=== PATIENT | male | born 1935 | race Caucasian/White ===

== ENCOUNTER 2016-05-02 00:15 | Inpatient (IN) | payer OTHER ==
[2016-05-02] MEDS ORDERED: ALBUTEROL SO4 2.5/IPRATROPIUM 0.5 INH SOL 3 ML VIAL.NEB. NEB ONE (00:22)
[2016-05-02] MEDS ORDERED: methylPREDNISolone NA SUCC 125 MG/2 ML VIAL ONE (00:22)
--- NOTE | 2016-05-02 00:22 | PDOC ---
ED Treatment Course - LABORATORY CBC & Chemistry Diagram: 05/02/16 00:38 05/02/16 00:38 Medical Decision Making - Medical Decision Making 05/02/16 00:21 agree with care from [facility] *DC/Admit/Observation/Transfer Diagnosis at time of Disposition: Obstructive chronic bronchitis with exacerbation - Discharge Dispostion Condition at time of disposition: Stable
[2016-05-02 00:48] LABS: MCH 30.2 pg (25.7-33.7); MCHC 33.4 g/dl (32.0-35.9); MEAN CELL VOLUME 90.4 fl (80-96); MEAN PLT VOLUME 9.9 fl (7.5-11.1); PLATELET COUNT 133 K/MM3 (134-434); RDW 14.1 % (11.9-15.9); WHITE BLOOD COUNT 7.9 K/mm3 (4.0-10.0)
[2016-05-02 01:09] LABS: ALBUMIN 3.8 g/dl (3.4-5.0); BILIRUBIN,TOTAL 0.5 mg/dL (0.2-1.0); CALCIUM 8.6 mg/dL (8.5-10.1); CREATININE 1.4 mg/dL (0.7-1.3); TOT PROT 6.7 g/dl (6.4-8.2)
[2016-05-02 01:11] LABS: TROPONIN I 0.06 ng/ml (0.00-0.05)
--- NOTE | 2016-05-02 02:18 | PDOC ---
History of Present Illness - General Chief Complaint: Shortness of Breath Stated Complaint: DIFFICULTY BREATHING Time Seen by Provider: 05/02/16 00:19 History Source: Patient, Family Exam Limitations: No Limitations - History of Present Illness Initial Comments: 05/02/16 02:10 81yo Male patient w/ PmHx: HLD, HTN, "Prostate problems," presents to ED via EMS from home w/ family. Patient with cough and trouble breathing x 3 days not getting better. Patient son states he was refusing to go to doctors. Patient is a former smoker who quit 1 year ago. Enroute to ED patient received DuoNeb x1 and Solumedrol 125 IV w/ fluids. He denies CP, Abd pain, Back pain, n/v/d, fever , dysuria, hematuria, or any other complaints at this time. Timing/Duration: reports: changing over time, getting worse Severity: reports: moderate Possible Cause: Yes: illness exposure Modifying Factors: worse with: activity, albuterol inhaler, albuterol nebulizer , antibiotics, coughing, lying down, oxygen, rest, other Associated Symptoms: reports: cough, shortness of breath, wheezing Past History - Travel Traveled outside of the country in the last 30 days: No Close contact w/someone who was outside of country & ill: No - Past Medical History Allergies/Adverse Reactions: Allergies Allergy/AdvReac Type Severity Reaction Status Date / Time No Known Allergies Allergy Verified 05/02/16 00:25 Home Medications: Ambulatory Orders Aspirin [Aspirin EC] 81 mg PO DAILY 05/15/14 Atenolol [Tenormin -] 25 mg PO BID 05/15/14 Enalapril Maleate [Vasotec -] 20 mg PO DAILY 05/15/14 Fenofibrate 50 mg PO DAILY 05/15/14 Fluticasone Propionate [Flovent Diskus] 50 mcg IH ASDIR 05/15/14 Guaifenesin/Codeine Phos [Guaifenesin-Codeine Syrup] 5 ml PO Q6H PRN #100 ml 04/30 Prednisone [Deltasone -] 60 mg PO UTDICT #12 tablet 05/15/14 Simvastatin [Zocor -] 40 mg PO HS 05/15/14 COPD: Yes HTN: Yes Hypercholesterolemia: Yes - Immunization History Immunization Up to Date: No - Psycho/Social/Smoking Cessation Hx Anxiety: No Suicidal Ideation: No Smoking History: Former smoker Have you smoked in the past 12 months: No Number of Cigarettes Smoked Daily: 4 Information on smoking cessation initiated: No Hx Alcohol Use: Yes Drug/Substance Use Hx: No Substance Use Type: Alcohol Respiratory Specific PMHX - Complaint Specific PMHX Angina: No Bronchitis: No Pneumonia: No Pulmonary Embolus: No TB (Tuberculosis): No Review of Systems - Review of Systems Able to Perform ROS?: Yes Is the patient limited Estonian proficient: Yes Constitutional: No: Chills, Fever HEENTM: No: Nose Congestion Respiratory: Yes: Cough, Shortness of Breath, Wheezing. No: Productive cough, Hemoptysis Cardiac (ROS): No: Chest Pain, Lightheadedness, Palpitations, Chest Tightness ABD/GI: No: Constipated, Diarrhea, Nausea, Poor Appetite, Poor Fluid Intake, Vomiting : No: Burning, Dysuria, Frequency, Flank Pain, Hematuria, Pain, Urgency Musculoskeletal: No: Back Pain Integumentary: No: Bruising, Erythema, Rash Neurological: No: Headache, Seizure, Tremors, Weakness All Other Systems: Reviewed and Negative *Physical Exam - Vital Signs Last Vital Signs Temp Pulse Resp BP Pulse Ox 98.8 F 109 H 24 172/81 91 L 05/02/16 00:05/02/16 00:17 05/02/16 00:17 05/02/16 00:17 05/02/16 00:17 - Physical Exam General Appearance: Yes: Nourished, Appropriately Dressed, Apparent Distress, Moderate Distress. No: Severe Distress HEENT: positive: EOMI, CHIO, Normal ENT Inspection, Normal Voice, Symmetrical, TMs Normal, Pharynx Normal. negative: Pharyngeal Erythema, Tonsillar Exudate, Tonsillar Erythema, Nasal Congestion, TM Bulging, TM Dull, TM Erythema Neck: positive: Trachea midline, Supple. negative: Stridor, Lymphadenopathy (R) , Lymphadenopathy (L) Respiratory/Chest: positive: Respiratory Distress, Labored Respiration, Rhonchi , Wheezing. negative: Chest Tender, Lungs Clear, Normal Breath Sounds, Accessory Muscle Use Cardiovascular: positive: Regular Rhythm, Regular Rate. negative: Edema, JVD, Murmur Gastrointestinal/Abdominal: positive: Normal Bowel Sounds, Soft, Distended. negative: Guarding, Rebound, Tenderness Lymphatic: negative: Adenopathy Musculoskeletal: positive: Normal Inspection. negative: CVA Tenderness Extremity: positive: Normal Capillary Refill, Normal Inspection, Normal Range of Motion Integumentary: positive: Normal Color, Dry, Warm. 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, Fully Oriented, Alert, Normal Mood/ Affect, Normal Response, Motor Strength 07/18 ED Treatment Course - LABORATORY CBC & Chemistry Diagram: 05/02/16 00:38 05/02/16 00:38 - ADDITIONAL ORDERS Additional order review: Laboratory Results 05/02/16 05/02/16 05/02/16 00:38 00:38 00:38 Sodium 141 Potassium 4.3 Chloride 104 Carbon Dioxide 26 Anion Gap 11 BUN 22 H Creatinine 1.4 H D Creat Clearance w eGFR 48.64 Random Glucose 139 H D Calcium 8.6 Total Bilirubin 0.5 AST 44 H ALT 41 Alkaline Phosphatase 43 L Creatine Kinase 460 H Creatine Kinase Index 0.9 CK-MB (CK-2) 4.215 H CK-MB (CK-2) Rel Index Cancelled Troponin I 0.06 H B-Natriuretic Peptide 199.22 Total Protein 6.7 Albumin 3.8 05/02/16 00:38 RBC 4.65 MCV 90.4 MCHC 33.4 RDW 14.1 MPV 9.9 - RADIOLOGY Radiology Studies Ordered: Category Date Time Status CHEST CT WITH CONTRAST [CT] Stat CT Scan 05/02/16 01:40 Ordered CHEST PA & LAT [RAD] Stat Radiology 05/02/16 00:25 Taken *DC/Admit/Observation/Transfer Diagnosis at time of Disposition: COPD exacerbation Pneumonia Qualifiers: Pneumonia type: due to unspecified organism Laterality: right Lung location: lower lobe of lung Qualified Code(s): J18.9 - Pneumonia, unspecified organism - Discharge Dispostion Disposition: HOME Condition at time of disposition: Stable Admit: Yes - Referrals Referrals: Raj Looney MD [Primary Care Provider] -
[2016-05-02 02:22] LABS: URINE APPEARANCE CLEAR; URINE BILIRUBIN NEGATIVE (NEGATIVE); URINE BLOOD NEGATIVE (NEGATIVE); URINE COLOR YELLOW; URINE GLUCOSE (UA) NEGATIVE (NEGATIVE); URINE KETONE NEGATIVE (NEGATIVE); URINE LEUK ESTERASE NEGATIVE (NEGATIVE); URINE NITRITE NEGATIVE (NEGATIVE); URINE UROBILINOGEN NEGATIVE E.U./dl (0.2-1.0)
[2016-05-02 02:23] LABS: URINE PROTEIN 1+ (NEGATIVE)
[2016-05-02 02:29] LABS: GRANULAR CASTS 2 /lpf; URINE BACTERIA RARE /hpf (NONE SEEN); URINE HYALINE CAST 1 /lpf; URINE MUCUS RARE; URINE RBC 1 /hpf (0-3); URINE WBC 1 /hpf (3-5)
[2016-05-02] MEDS ORDERED: LEVOFLOXACIN 750 MG IVPB 150 ML IVPB ONE ×2 (03:21→04:13)
[2016-05-02] MEDS: methylPREDNISolone NA SUCC 40 MG/1 ML VIAL IVPB SCH ×4 (06:48→21:56)
[2016-05-02] MEDS ORDERED: methylPREDNISolone NA SUCC 40 MG/1 ML VIAL ONE (06:49)
[2016-05-02] MEDS: ALBUTEROL SO4 2.5/IPRATROPIUM 0.5 INH SOL 3 ML VIAL.NEB. NEB PRN ×2 (07:53→09:33)
[2016-05-02 08:51] VITALS: BMI 26.3
--- NOTE | 2016-05-02 09:46 | HP ---
Admitting History and Physical - Admission History of Present Illness: 81yo Male patient w/ PmHx: HLD, HTN, "Prostate problems," presents to ED via EMS from home w/ family. Patient with cough and trouble breathing x 3 days not getting better. Patient son states he was refusing to go to doctors. Patient is a former smoker who quit 1 year ago. PT SEEN ON ARRIVAL TO FLOOR HE WAS WHEEZING AND IN DITRESSS--HE WAS GIVEN NEBS AND SOLU-MEDROL WITH SOME IMPROVEMENT WILL TRANSFER TO MONITORED BED PT SEEN AND DISCUSSED WITH DR MEHTA - Past Medical History Cardiovascular: Yes: HTN, Hyperlipdemia Pulmonary: Yes: COPD Renal/: Yes: BPH - Smoking History Smoking history: Former smoker Have you smoked in the past 12 months: No Aproximately how many cigarettes per day: 4 - Alcohol/Substance Use Hx Alcohol Use: Yes Home Medications - Allergies Allergies/Adverse Reactions: Allergies Allergy/AdvReac Type Severity Reaction Status Date / Time No Known Allergies Allergy Verified 05/02/16 00:25 - Home Medications Home Medications: Ambulatory Orders Aspirin [Aspirin EC] 81 mg PO DAILY 05/15/14 Atenolol [Tenormin -] 25 mg PO BID 05/15/14 Enalapril Maleate [Vasotec -] 20 mg PO DAILY 05/15/14 Fenofibrate 50 mg PO DAILY 05/15/14 Fluticasone Propionate [Flovent Diskus] 50 mcg IH ASDIR 05/15/14 Guaifenesin/Codeine Phos [Guaifenesin-Codeine Syrup] 5 ml PO Q6H PRN #100 ml 04/30 Prednisone [Deltasone -] 60 mg PO UTDICT #12 tablet 05/15/14 Simvastatin [Zocor -] 40 mg PO HS 05/15/14 Review of Systems - Review of Systems Cardiovascular: denies: Chest Pain, Palpitations Respiratory: reports: Cough, SOB, SOB on Exertion, Wheezing Gastrointestinal: denies: Abdominal Pain Genitourinary: reports: Frequency Neurological: reports: No Symptoms Physical Examination Vital Signs: Vital Signs Temperature 97 F L 05/02/16 08:43 Pulse Rate 120 H 05/02/16 09:34 Respiratory Rate 20 05/02/16 08:57 Blood Pressure 136/84 05/02/16 08:43 O2 Sat by Pulse Oximetry (%) 98 02/17/17 09:34 Cardiovascular: Yes: Tachycardia, S1, S2 Respiratory: Yes: Diminished, Rhonchi, Wheezes Gastrointestinal: Yes: Normal Bowel Sounds, Soft. No: Tenderness Edema: No Problem List - Problems (1) COPD exacerbation Assessment/Plan: IV STEROIDS NEBS PULM CONSULT ABX Code(s): J44.1 - CHRONIC OBSTRUCTIVE PULMONARY DISEASE W (ACUTE) EXACERBATION (2) Bronchitis Assessment/Plan: ABX CT OF CHEST Code(s): J40 - BRONCHITIS, NOT SPECIFIED ACUTE OR CHRONIC (3) Elevated troponin Assessment/Plan: MONITOR EKG CARDIO Code(s): R79.89 - OTHER SPECIFIED ABNORMAL FINDINGS OF BLOOD CHEMISTRY
--- NOTE | 2016-05-02 10:06 | EKG ---
Test Reason : Blood Pressure : / mmHG Vent. Rate : 101 BPM Atrial Rate : 101 BPM P-R Int : 198 ms QRS Dur : 084 ms QT Int : 328 ms P-R-T Axes : 061 -07 040 degrees QTc Int : 425 ms SINUS TACHYCARDIA NONSPECIFIC ST ABNORMALITY ABNORMAL ECG NO PREVIOUS ECGS AVAILABLE Confirmed by GUERA ARRIAZA MD ([id number]) on 05/02/2016 10:06:09 AM Referred By: Confirmed By:GUERA ARRIAZA MD
--- NOTE | 2016-05-02 10:09 | EKG ---
Test Reason : Blood Pressure : / mmHG Vent. Rate : 108 BPM Atrial Rate : 108 BPM P-R Int : 172 ms QRS Dur : 096 ms QT Int : 356 ms P-R-T Axes : 055 -14 031 degrees QTc Int : 477 ms SINUS TACHYCARDIA MODERATE VOLTAGE CRITERIA FOR LVH, MAY BE NORMAL VARIANT NONSPECIFIC ST ABNORMALITY ABNORMAL ECG WHEN COMPARED WITH ECG OF 02-MAY-2016 00:30, QT HAS LENGTHENED Confirmed by SOFIYA VILLRAREAL, GUERA ([id number]) on 05/02/2016 10:09:34 AM Referred By: KAYLEE QUEEN Confirmed By:GUERA ARRIAZA MD
[2016-05-02] MEDS: ASPIRIN COATED 81 MG TABLET.EC PO SCH (10:32)
[2016-05-02] MEDS: HEPARIN NA (PORCINE) 5,000 UNITS/ML 1ML VIAL SQ SCH ×2 (10:32→21:56)
[2016-05-02] MEDS: ENALAPRIL MALEATE 10 MG TABLET (FP) PO SCH (10:32)
[2016-05-02] MEDS: ATENOLOL 25 MG TABLET (FP) PO SCH ×2 (10:32→21:56)
[2016-05-02] MEDS ORDERED: methylPREDNISolone NA SUCC 125 MG/2 ML VIAL IVPB SCH (10:36)
[2016-05-02 10:51] LABS: TROPONIN I 0.35 ng/ml (0.00-0.05)
[2016-05-02] MEDS: CEFTRIAXONE 50 ML IVPB SCH (10:53)
--- NOTE | 2016-05-02 11:04 | CON.PULM ---
Consult Consult Specialty:: PULMONARY Referred by:: DEMETRIA Reason for Consultation:: SOB/COUGH - History of Present Illness Chief Complaint: SOB/COUGH History of Present Illness: 81yo Male patient w/ PmHx: HLD, HTN, "Prostate problems," large substernal thyroid with tracheal deviation, presents to ED via EMS from home w/ family. Patient with cough and trouble breathing x 3 days not getting better. Patient son states he was refusing to go to doctors. Patient is a former smoker who quit 1 year ago. Enroute to ED patient received DuoNeb x1 and Solumedrol 125 IV w/ fluids. He denies CP, Abd pain, Back pain, n/v/d, fever, dysuria, hematuria, or any other complaints at this time. - History Source History Provided By: Patient, Family Member, Medical Record Limitations to Obtaining History: Clinical Condition - Past Medical History Cardio/Vascular: Yes: HTN, Hyperlipdemia Pulmonary: Yes: COPD Gastrointestinal: No: Ascites Hepatobiliary: No: Cirrhosis Renal/: Yes: BPH Heme/Onc: No: Anemia Infectious Disease: No: AIDS Psych: No: Addictions Rheumatology: No: Fibromyalgia ENT: No: Allergic Rhinitis - Alcohol/Substance Use Hx Alcohol Use: Yes History of Substance Use: reports: None - Smoking History Smoking history: Former smoker Have you smoked in the past 12 months: No Aproximately how many cigarettes per day: 4 - Social History Usual Living Arrangement: With Spouse Place of : Other Home Medications - Allergies Allergies/Adverse Reactions: Allergies Allergy/AdvReac Type Severity Reaction Status Date / Time No Known Allergies Allergy Verified 05/02/16 00:25 - Home Medications Home Medications: Ambulatory Orders Aspirin [Aspirin EC] 81 mg PO DAILY 05/15/14 Atenolol [Tenormin -] 25 mg PO BID 05/15/14 Enalapril Maleate [Vasotec -] 20 mg PO DAILY 05/15/14 Fenofibrate 50 mg PO DAILY 05/15/14 Fluticasone Propionate [Flovent Diskus] 50 mcg IH ASDIR 05/15/14 Guaifenesin/Codeine Phos [Guaifenesin-Codeine Syrup] 5 ml PO Q6H PRN #100 ml 04/30 Prednisone [Deltasone -] 60 mg PO UTDICT #12 tablet 05/15/14 Simvastatin [Zocor -] 40 mg PO HS 05/15/14 Family Disease History - Family Disease History Family History: Unremarkable Review of Systems - Review of Systems Constitutional: denies: Fever Eyes: denies: Blurred Vision HENT: denies: Difficult Swallowing Neck: denies: Decreased ROM Cardiovascular: reports: Shortness of Breath. denies: Chest Pain Respiratory: reports: Cough, Exercise Intolerance, SOB on Exertion, Wheezing. denies: Hemoptysis Gastrointestinal: reports: No Symptoms Genitourinary: reports: No Symptoms Breasts: reports: No Symptoms Reported Musculoskeletal: reports: No Symptoms Integumentary: reports: No Symptoms Neurological: reports: No Symptoms Physical Exam Vital Sings: Vital Signs Temperature 97 F L 05/02/16 08:43 Pulse Rate 114 H 05/02/16 10:10 Respiratory Rate 22 05/02/16 10:10 Blood Pressure 154/78 05/02/16 10:10 O2 Sat by Pulse Oximetry (%) 98 05/02/16 09:34 Constitutional: Yes: Calm Eyes: Yes: EOM Intact HENT: Yes: Normocephalic Neck: Yes: Thyromegaly Cardiovascular: Yes: S1, S2 Respiratory: Yes: Diminished Gastrointestinal: Yes: Normal Bowel Sounds, Abdomen, Obese Edema: No Neurological: Yes: Alert Psychiatric: Yes: Alert Labs: ALL LABS REVIEWED Imaging - Results Chest X-ray: Image Reviewed Cat Scan: Image Reviewed EKG: Report Reviewed Problem List - Problems (1) COPD exacerbation Code(s): J44.1 - CHRONIC OBSTRUCTIVE PULMONARY DISEASE W (ACUTE) EXACERBATION (2) Bronchitis Code(s): J40 - BRONCHITIS, NOT SPECIFIED ACUTE OR CHRONIC (3) Substernal thyroid goiter Code(s): E04.9 - NONTOXIC GOITER, UNSPECIFIED Assessment/Plan LIKELY ACUTE BRONCHITIS WITH A/E COPD FORMER SMOKER 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
[2016-05-02 11:08] LABS: TROPONIN I 0.38 ng/ml (0.00-0.05)
[2016-05-02 11:38] LABS: ARTERIAL BLD GAS O2 SATURATION 97.7 % (90-98.9); ARTERIAL BLOOD GAS HCO3 22.5 meq/L (22-26); ARTERIAL BLOOD GAS pH 7.37 (7.35-7.45)
[2016-05-02 11:39] LABS: ALLENS TEST POSITIVE; ART PUNCT SITE RIGHT RADIAL; PT. ON O2? YES
[2016-05-02 11:40] LABS: LPM/O2% 40; TYPE OF O2 VENTI MAK
[2016-05-02] MEDS: ALBUTEROL SO4 2.5/IPRATROPIUM 0.5 INH SOL 3 ML VIAL.NEB. NEB SCH ×3 (11:42→23:27)
--- NOTE | 2016-05-02 11:58 | CONSULT ---
Consult - text type - Consultation Consultation Note: Renal Consult for ROHINI vs. CKD This is a 81 year old Gentleman with PMhx of Hypertension, Former Smoker, COPD, Hyperlipidemia, BPH? who presented with complaints of SOB that was worsening over the course of a week and found to have BUN/Cr of 22/1.4. Pt denies any history of kidney disease, but reports he may have a kidney stone several years ago. Denies any NSAID use. Is on ACEi at home. Denies any bloody/dark urine or flank pain. Reports good oral intake. Reports urinating well. SOB is improved. No CHILDS, confusion or lethargy. No skin rash. No recent Abx use. PMhx: as above Allergies: NDKA Family Hx: NC Social Hx: Former smoker ROS: as per HPI, all other pertinent ros negative Home Meds: Home Medications Medication Instructions Recorded Aspirin [Aspirin EC] 81 mg PO DAILY 05/15/14 Atenolol [Tenormin -] 25 mg PO BID 05/15/14 Enalapril Maleate [Vasotec -] 20 mg PO DAILY 05/15/14 Fenofibrate 50 mg PO DAILY 05/15/14 Fluticasone Propionate [Flovent 50 mcg IH ASDIR 05/15/14 Diskus] Guaifenesin/Codeine Phos 5 ml PO Q6H PRN #100 ml 05/15/14 [Guaifenesin-Codeine Syrup] Prednisone [Deltasone -] 60 mg PO UTDICT #12 tablet 05/15/14 Simvastatin [Zocor -] 40 mg PO HS 05/15/14 Vital Signs Temperature 97 F L 05/02/16 08:43 Pulse Rate 114 H 05/02/16 10:10 Respiratory Rate 22 05/02/16 10:10 Blood Pressure 154/78 05/02/16 10:10 O2 Sat by Pulse Oximetry (%) 98 05/02/16 09:34 Intake & Output 04/29/16 04/30/16 05/01/16 05/02/16 23:59 23:59 23:59 23:59 Weight 194 lb Gen: NAD, awake and alert HEENT: NC/AT, MMM, No JVD CVS: RRR, No M/R Lungs: CTA, No rales or wheeze Abd: soft NT/ND Ext: No edema, clubbing or cyanosis : No bladder distension Neuro: Awake and Alert, no focal defects CBC, BMP 05/02/16 00:38 05/02/16 00:38 Laboratory Tests 05/02/16 05/02/16 05/02/16 00:38 01:35 09:15 Calcium 8.6 AST 44 H ALT 41 Alkaline Phosphatase 43 L Creatine Kinase 460 H 549 H CK-MB (CK-2) 4.215 H 6.203 H Troponin I 0.06 H 0.35 H D Urine Protein 1+ H 05/02/16 10:15 Calcium AST ALT Alkaline Phosphatase Creatine Kinase 564 H CK-MB (CK-2) 6.446 H Troponin I 0.38 H Urine Protein Current Medications Albuterol/Ipratropium (Duoneb -) 1 amp NEB QIDR [facility] Last Admin: 05/02/16 11:42 Dose: Not Given Aspirin (Ecotrin -) 81 mg PO DAILY [facility] Last Admin: 05/02/16 10:32 Dose: 81 mg Atenolol (Tenormin -) 25 mg PO BID [facility] Last Admin: 05/02/16 10:32 Dose: 25 mg Enalapril Maleate (Vasotec -) 20 mg PO DAILY [facility] Last Admin: 05/02/16 10:32 Dose: 20 mg Heparin Sodium (Porcine) (Heparin -) 5,000 unit SQ BID [facility] Last Admin: 05/02/16 10:32 Dose: 5,000 unit Ceftriaxone Sodium (Rocephin 1gm Ivpb (Pre-Docked)) 50 mls @ 100 mls/hr IVPB DAILY [facility] Last Admin: 05/02/16 10:53 Dose: 100 mls/hr Methylprednisolone Sodium Succinate (Solu-Medrol -) 40 mg IVPB Q6H-IV [facility] Mometasone Furoate (Asmanex 220mcg -) 1 puff IH HS [facility] A/P 81 year old Gentleman with PMhx of Hypertension, Former Smoker, COPD, Hyperlipidemia, BPH? who presented with complaints of SOB that was worsening over the course of a week and found to have BUN/Cr of 22/1.4. #ROHINI vs. CKD Prior Cr was 0.7 (05/2014) Check UPCR, FeNa, Renal and Bladder US Trial of IVF NS at 84cc per hour for 24 hours Continue Enalapril for now Dose all meds for Cr Cl less then 60 Avoid NSAIDs and other nephrotoxins #SOB secondary to COPD Continue IV steorids and Nebs Pulmonary follow up #Elevated Cardiac Enzymes EKG w/o specific ischemic changes Troponin up trending Cardiology Evaluation #Hypertension Continue Atenolol, Enalapril Goal BP < 140/90 Thank you Will follow Claudio Ramos DO
--- NOTE | 2016-05-02 15:15 | CONSULT ---
Consult Consult Specialty:: Cardiology Referred by:: Dr Gottlieb Reason for Consultation:: Elevated trop I - History of Present Illness History of Present Illness: 81 yo male, past smoker, with hx of HLD, HTN, "Prostate problems", large substernal thyroid with tracheal deviation, presents to ED with cough and trouble breathing x 3 days Patient denies hx of HI, CHF or CP syndrome. He however has had cardiac evaluation over th eye, because of risk factors, even a cardiac cath -. clean cors (per him). The last evaluation was years ago, he ays At baseline, he has no CP, SOB. He had an episode a yr ago -. evaluated here and was d/lala w/ diagnosis of bronchitis He says he wa sin his USOH until Thursday when he developed difficulty breathing and feeling phlegm in the back of his throat -. unable to bring up. He says his son an d have been sick He denies CP, palpitations or dizziness En route to ED patient received DuoNeb x1 and Solumedrol 125 IV w/ fluids. - History Source History Provided By: Patient - Past Medical History Cardio/Vascular: Yes: HTN, Hyperlipdemia Pulmonary: Yes: Bronchitis (2014), COPD - Past Surgical History Past Surgical History: Yes: Hernia Repair - Alcohol/Substance Use Hx Alcohol Use: Yes History of Substance Use: reports: None - Smoking History Smoking history: Former smoker (reduced 3 ya -. still smoked until 3 ya) Have you smoked in the past 12 months: No Aproximately how many cigarettes per day: 4 - Social History Usual Living Arrangement: With Spouse Home Medications - Allergies Allergies/Adverse Reactions: Allergies Allergy/AdvReac Type Severity Reaction Status Date / Time No Known Allergies Allergy Verified 05/02/16 00:25 - Home Medications Home Medications: Ambulatory Orders Aspirin [Aspirin EC] 81 mg PO DAILY 05/15/14 Atenolol [Tenormin -] 25 mg PO BID 05/15/14 Enalapril Maleate [Vasotec -] 20 mg PO DAILY 05/15/14 Fenofibrate 50 mg PO DAILY 05/15/14 Fluticasone Propionate [Flovent Diskus] 50 mcg IH ASDIR 05/15/14 Guaifenesin/Codeine Phos [Guaifenesin-Codeine Syrup] 5 ml PO Q6H PRN #100 ml 04/30 Prednisone [Deltasone -] 60 mg PO UTDICT #12 tablet 05/15/14 Simvastatin [Zocor -] 40 mg PO HS 05/15/14 Family Disease History - Family Disease History Family History: Denies (premature CAD) Review of Systems - Review of Systems Constitutional: reports: No Symptoms Eyes: reports: No Symptoms HENT: reports: Other (Phlegnm in back of throat) Neck: reports: No Symptoms Cardiovascular: reports: Shortness of Breath Respiratory: reports: SOB, SOB on Exertion, Wheezing Gastrointestinal: reports: No Symptoms Musculoskeletal: reports: Joint Pain Hematology/Lymphatic: reports: No Symptoms Physical Exam Vital Signs: Vital Signs Temperature 97 F L 05/02/16 08:43 Pulse Rate 114 H 05/02/16 10:10 Respiratory Rate 22 05/02/16 10:10 Blood Pressure 154/78 05/02/16 10:10 O2 Sat by Pulse Oximetry (%) 98 05/02/16 09:34 Constitutional: Yes: Obese, Other (audible wheezes (upper airway)) Eyes: Yes: Conjunctiva Clear HENT: Yes: Atraumatic Neck: Yes: Other (thick) Cardiovascular: Yes: Tachycardia (but regular). No: Murmur Respiratory: Yes: CTA Bilaterally Gastrointestinal: Yes: Normal Bowel Sounds, Soft, Abdomen, Obese. No: Tenderness Edema: No Peripheral Pulses WNL: Yes Neurological: Yes: Alert, Oriented Psychiatric: Yes: Alert, Oriented Imaging - Results Chest X-ray: Report Reviewed, Image Reviewed EKG: Report Reviewed, Image Reviewed (ST, LVH, LAD, NSST changes (repat EKG w/o sign changes)) Other: Other (ST) Assessment/Plan 81 yo male, with the above history, here with SOB.wheezing/phlegm -. denies CP, palpitations Pt with large goiter with tracheal deviation, awaiting endo eval EKG is ST, a reactive rhythm. Given context, not unusual Trop Is have been in indeterminate range. In setting of renal dysfunction, not diagnostic of acute HI. Pt also with mild rhabdo, with negative cardiac indices Trop however have been going up -. 0.06 -> 0.35 -> 0.38. Therefore, they need to be trended Pt with CAD risk factors. He reports past unremarkable work-up (not available - . I am trying to get the cath), though not in recent past Mild renal failure -. renal following Rec: Cont tele Check TFTS Continue BB, RANDOLPH-I (ok with renal) Follow trop I Keep lytes nl Echo, if no recent I am trying to get old cath report Abx/ steroid per pulm/IM Per endo/renal Thanks! We'll follow!
[2016-05-02 15:46] LABS: TROPONIN I 0.48 ng/ml (0.00-0.05)
--- NOTE | 2016-05-02 15:58 | PN ---
Progress Note (short form) - Note Progress Note: ID consult dictated imp/reccd 81 year old man with 3 day history of cough nonproductive and SOB had chest CTA- no PE, no infiltrates, large multinodular retrosternal goiter denies home oxygen use no recent travel no fever or chills copd exacerbation bronchitis received levaquin and ceftriaxone today influenza screen negative check rsv antigen (ordered) continue rocephin endocrine evaluation CAD-+troponins spoke with PMD Dr Looney- is not on chronic prednisone- d/lala this med from his medlist he will fax recent medlist and note to the hospital
--- NOTE | 2016-05-02 21:23 | CONS ---
DATE OF CONSULTATION: REQUESTING PHYSICIAN: Mauricio Will MD HISTORY: This is an 81-year-old man with a 3-day history of cough that has been nonproductive and shortness of breath. He feels like he has some phlegm stuck in his throat he says. There has been no hemoptysis. He has no fever or chills. He has no myalgia. He has no chest pain. He has a history of hypertension, hyperlipidemia, coronary artery disease, and BPH. He was seen in the emergency room. He had a CAT scan and a CTA of his chest that was negative for PE. There were no infiltrates. 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 He had a sonogram of his kidneys done as well that revealed BPH. I am asked to see him for treatment for his COPD exacerbation. He is currently resting comfortably. He has no complaints. There has been no nausea, vomiting, diarrhea, or dysuria. He has no chest pain or abdominal pain. ALLERGIES: He has no known drug allergies. MEDICATIONS: I spoke with his PMD regarding his medications as an outpatient. He does not take prednisone as an outpatient. He takes simvastatin, fenofibrate, enalapril, atenolol, and aspirin. FAMILY HISTORY: Noncontributory. SOCIAL HISTORY: He is a former smoker. Occasional alcohol use. He lives with his family. He is retired. REVIEW OF SYSTEMS: As per HPI. There is no history of any recent travel. Some of his family has recently had some cough. He has had no fever since admission. PHYSICAL EXAMINATION: Vital Signs: His current pulse is 114, blood pressure is 154/78, respiratory rate 22. HEENT: He is normocephalic. His eyes are anicteric. He has no thrush. Neck: Supple. Extremities: He has bilateral fat pads on his shoulders. His extremities are without edema. Lungs: Scattered rhonchi. Heart: Regular rate and rhythm. Abdomen: Soft and nontender. LABORATORY DATA: White count 7.9, hemoglobin 14.1. His BUN 22, creatinine 1.4, CPK is elevated at 605 with a troponin of 0.48. A urinalysis is negative. IMAGING STUDIES: As previously stated. Influenza screen is negative. In summary, this is an 81-year-old man admitted with COPD exacerbation, bronchitis who currently reports feeling improved on steroids and nebulizers. He received a dose of Levaquin this morning as well as a dose of Rocephin. Could continue the ceftriaxone for bronchitis coverage. We will check an RSV antigen as well. Endocrine evaluation has been ordered for his multinodular goiter. He is making troponins as well. I spoke with his PMD, Dr. Will. He is not on chronic prednisone. He will fax his recent medication list to the hospital. TI HUGHES M.D. CARLOS [id number]
[2016-05-02] MEDS: MOMETASONE FUROATE 220 MCG/IH INHALER IH SCH (21:56)
[2016-05-03] MEDS: methylPREDNISolone NA SUCC 40 MG/1 ML VIAL IVPB SCH ×3 (03:17→17:26)
[2016-05-03] MEDS: ALBUTEROL SO4 2.5/IPRATROPIUM 0.5 INH SOL 3 ML VIAL.NEB. NEB SCH ×4 (06:31→23:16)
[2016-05-03 08:12] LABS: MCH 29.9 pg (25.7-33.7); MEAN CELL VOLUME 90.8 fl (80-96); MEAN PLT VOLUME 10.3 fl (7.5-11.1); NEUTROPHILS 88.2 % (42.8-82.8); PLATELET COUNT 152 K/MM3 (134-434); RDW 13.7 % (11.9-15.9)
[2016-05-03 08:56] LABS: ALBUMIN 3.5 g/dl (3.4-5.0); ALK PHOS 29 U/L (45-117); ANION GAP 10 (8-16); BILIRUBIN,TOTAL 0.3 mg/dL (0.2-1.0); CALCIUM 8.7 mg/dL (8.5-10.1); CO2 28 mmol/L (21-32); CREATININE 1.1 mg/dL (0.7-1.3); GLUCOSE,RANDOM 122 mg/dL (74-106); PHOSPHOROUS 3.1 mg/dL (2.5-4.9); SGOT/AST 43 U/L (15-37); SGPT/ALT 39 U/L (12-78); THYROID STIMULATING HORMONE 0.19 uIU/ml (0.358-3.74); TOT PROT 6.5 g/dl (6.4-8.2)
[2016-05-03] MEDS ORDERED: LEVOFLOXACIN 500 MG IVPB 100 ML IVPB SCH (10:00)
--- NOTE | 2016-05-03 10:21 | PN ---
Progress Note, Physician - Current Medication List Current Medications: Active Medications Albuterol/Ipratropium (Duoneb -) 1 amp NEB QIDR [facility] Last Admin: 05/03/16 06:31 Dose: 1 amp Aspirin (Ecotrin -) 81 mg PO DAILY [facility] Last Admin: 05/02/16 10:32 Dose: 81 mg Atenolol (Tenormin -) 25 mg PO BID [facility] Last Admin: 05/02/16 21:56 Dose: 25 mg Enalapril Maleate (Vasotec -) 20 mg PO DAILY [facility] Last Admin: 05/02/16 10:32 Dose: 20 mg Heparin Sodium (Porcine) (Heparin -) 5,000 unit SQ BID [facility] Last Admin: 05/02/16 21:56 Dose: 5,000 unit Ceftriaxone Sodium (Rocephin 1gm Ivpb (Pre-Docked)) 50 mls @ 100 mls/hr IVPB DAILY [facility] Last Admin: 05/02/16 10:53 Dose: 100 mls/hr Methylprednisolone Sodium Succinate (Solu-Medrol -) 40 mg IVPB Q6H-IV [facility] Last Admin: 05/03/16 08:00 Dose: 40 mg Mometasone Furoate (Asmanex 220mcg -) 1 puff IH HS [facility] Last Admin: 05/02/16 21:56 Dose: 1 puff - Objective Vital Signs: Vital Signs Temperature 97.9 F 05/03/16 10:04 Pulse Rate 72 05/03/16 10:04 Respiratory Rate 18 05/03/16 10:04 Blood Pressure 138/66 05/03/16 10:04 O2 Sat by Pulse Oximetry (%) 94 L 05/03/16 09:00 Cardiovascular: Yes: WNL Respiratory: Yes: WNL Gastrointestinal: Yes: WNL Labs: CBC, BMP 05/03/16 05:45 05/03/16 05:45 Problem List - Problems (1) Substernal thyroid goiter Code(s): E04.9 - NONTOXIC GOITER, UNSPECIFIED (2) Distended bladder Code(s): N32.89 - OTHER SPECIFIED DISORDERS OF BLADDER Assessment/Plan (1) COPD exacerbation Assessment/Plan: IV STEROIDS NEBS PULM CONSULT IV ABX Code(s): J44.1 - CHRONIC OBSTRUCTIVE PULMONARY DISEASE W (ACUTE) EXACERBATION (2) Bronchitis Assessment/Plan: ABX CT OF CHEST -> GOITER WITH AIRWAY COMPROMISE Code(s): J40 - BRONCHITIS, NOT SPECIFIED ACUTE OR CHRONIC (3) Elevated troponin Assessment/Plan: MONITOR EKG TROP TRENDING UP CARDIO ON CASE DO NOT SUSPECT ACS Code(s): R79.89 - OTHER SPECIFIED ABNORMAL FINDINGS OF BLOOD CHEMISTRY (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 ENDO CONSULTED TSH LOW -> TFT - ENT (5) Distended bladder Code(s): N32.89 - OTHER SPECIFIED DISORDERS OF BLADDER SONO -> LIVER DISEASE. RVR LOW Cr IMPROVED TO NL - UCx - [facility]RO [employer] [facility]
[2016-05-03] MEDS: ENALAPRIL MALEATE 10 MG TABLET (FP) PO SCH (10:48)
[2016-05-03] MEDS: ASPIRIN COATED 81 MG TABLET.EC PO SCH (10:48)
[2016-05-03] MEDS: ATENOLOL 25 MG TABLET (FP) PO SCH ×2 (10:48→22:30)
[2016-05-03] MEDS: CEFTRIAXONE 50 ML IVPB SCH (10:49)
[2016-05-03] MEDS: HEPARIN NA (PORCINE) 5,000 UNITS/ML 1ML VIAL SQ SCH ×2 (10:49→22:30)
--- NOTE | 2016-05-03 11:17 | PN ---
Progress Note (short form) - Note Progress Note: PULMONARY OOB TO CHAIR OFFERS NO COMPLAINTS APPEARS STABLE VSS/AFEBRILE ANICTERIC DISTANT BUT CLEAR S1S2 BS+ OBESE NO EDEMA LABS/MEDS/NOTES/IMAGING/MICRO/ REVIEWED LIKELY ACUTE BRONCHITIS WITH A/E COPD FORMER SMOKER LARGE SUBSTERNAL MUTINODULAR GOITER W LEFTWARD TRACHEAL DEVIATION AND COMPRESSION HTN/HPL SOLUMEDROL TO BE TAPERED/BRONCHODILATORS/O2 SUPPLEMENTATION/ANTIBIOTICS/ WOULD ADDRESS LARGE SUBSTERNAL THYROID IT IS LIKELY CAUSING RESPIRATORY COMPROMISE GIVEN DEGREE OF TRACHEAL COMPRESSION HAVE REQUESTED PRE/POST AMB SPO2 R [facility] Problem List - Problems (1) COPD exacerbation Code(s): J44.1 - CHRONIC OBSTRUCTIVE PULMONARY DISEASE W (ACUTE) EXACERBATION (2) Bronchitis Code(s): J40 - BRONCHITIS, NOT SPECIFIED ACUTE OR CHRONIC (3) Substernal thyroid goiter Code(s): E04.9 - NONTOXIC GOITER, UNSPECIFIED
--- NOTE | 2016-05-03 11:21 | PN ---
Progress Note (short form) - Note Progress Note: clinically improved OOB in chair Vital Signs Period Temp Pulse Resp BP Sys/Rooney Pulse Ox Last 24 Hr 97.7 F-98.2 F 62-103 18-20 136-156/66-90 94-97 cor-rrr lungs bilateral rhonchi abd- soft,nt ext no edema CBC, BMP 05/03/16 05:45 05/03/16 05:45 Microbiology 05/02/16 00:38 Blood - Peripheral Venous Blood Culture - Preliminary NO GROWTH OBTAINED AFTER 24 HOURS, INCUBATION TO CONTINUE FOR 4 DAYS. 05/02/16 00:38 Blood - Peripheral Venous Blood Culture - Preliminary NO GROWTH OBTAINED AFTER 24 HOURS, INCUBATION TO CONTINUE FOR 4 DAYS. 05/02/16 11:00 Nasopharyngeal Swab Respiratory Virus Panel - Preliminary 05/02/16 11:00 Nasopharyngeal Swab Influenza Types A,B Antigen (BETTINA) - Final 05/02/16 11:00 Nasopharyngeal Swab - Final a/p copd exacerbation- improving bronchitis- on rocephin multinodular goiter- endocrine f/u pending
--- NOTE | 2016-05-03 12:24 | PN ---
Progress Note (short form) - Note Progress Note: Renal Follow up for ROHINI Pt seen and examined at the bedside No acute complaints currently getting Neb Tx no chest pain, sob, fever, chills reports good urine output Vital Signs Temperature 97.9 F 05/03/16 10:04 Pulse Rate 72 05/03/16 10:04 Respiratory Rate 18 05/03/16 10:04 Blood Pressure 138/66 05/03/16 10:04 O2 Sat by Pulse Oximetry (%) 94 L 05/03/16 09:00 Intake & Output 04/30/16 05/01/16 05/02/16 05/03/16 23:59 23:59 23:59 23:59 Intake Total 360 260 Output Total 1000 1100 Balance -640 -840 Weight 194 lb Gen: NAD, awake and alert CVS: RRR, No M/R Lungs: CTA, No rales or wheeze Abd: soft NT/ND Ext: No edema, clubbing or cyanosis : No bladder distension, Wheat[place] in place CBC, BMP 05/03/16 05:45 05/03/16 05:45 Laboratory Tests 05/03/16 05:45 Calcium 8.7 Phosphorus 3.1 Magnesium 2.0 TSH 0.19 L Current Medications Albuterol/Ipratropium (Duoneb -) 1 amp NEB QIDR [facility] Last Admin: 05/03/16 11:40 Dose: 1 amp Aspirin (Ecotrin -) 81 mg PO DAILY [facility] Last Admin: 05/03/16 10:48 Dose: 81 mg Atenolol (Tenormin -) 25 mg PO BID [facility] Last Admin: 05/03/16 10:48 Dose: 25 mg Enalapril Maleate (Vasotec -) 20 mg PO DAILY [facility] Last Admin: 05/03/16 10:48 Dose: 20 mg Heparin Sodium (Porcine) (Heparin -) 5,000 unit SQ BID [facility] Last Admin: 05/03/16 10:49 Dose: 5,000 unit Ceftriaxone Sodium (Rocephin 1gm Ivpb (Pre-Docked)) 50 mls @ 100 mls/hr IVPB DAILY [facility] Last Admin: 05/03/16 10:49 Dose: 100 mls/hr Methylprednisolone Sodium Succinate (Solu-Medrol -) 40 mg IVPB Q8H-IV [facility] Mometasone Furoate (Asmanex 220mcg -) 1 puff IH HS [facility] Last Admin: 05/02/16 21:56 Dose: 1 puff Tamsulosin HCl (Flomax -) 0.4 mg PO DAILY@0830 [facility] A/P 81 year old Gentleman with PMhx of Hypertension, Former Smoker, COPD, Hyperlipidemia, BPH? who presented with complaints of SOB that was worsening over the course of a week and found to have BUN/Cr of 22/1.4. #ROHINI vs. CKD Likey due to volume depletion Prior Cr was 0.7 (05/2014) Cr improved today s/p IVF Renal US showed normal size kidneys w/o obstruction Bladder US showed enlarged prostate no significant proteinuria seen on urine studies continue IVF: NS 75cc x 18 hours Trend BUN/Cr #SOB secondary to COPD Continue IV steroids and Nebs Pulmonary follow up #Elevated Cardiac Enzymes EKG w/o specific ischemic changes Troponin up trending Cardiology Evaluation #Hypertension Continue Atenolol, Enalapril Goal BP < 140/90 Thank you Will follow Claudio Ramos DO
[2016-05-03] MEDS ORDERED: SODIUM CHLORIDE 1,000 ML IV SCH (12:30)
[2016-05-03] MEDS: TAMSULOSIN HCL 0.4 MG CAP.ER.24H (FP) PO SCH (12:49)
--- NOTE | 2016-05-03 13:52 | PN ---
Progress Note, Physician History of Present Illness: Currently denies chest pain or dyspnea. He only reports cough. - Current Medication List Current Medications: Active Medications Albuterol/Ipratropium (Duoneb -) 1 amp NEB QIDR [facility] Last Admin: 05/03/16 11:40 Dose: 1 amp Aspirin (Ecotrin -) 81 mg PO DAILY [facility] Last Admin: 05/03/16 10:48 Dose: 81 mg Atenolol (Tenormin -) 25 mg PO BID [facility] Last Admin: 05/03/16 10:48 Dose: 25 mg Enalapril Maleate (Vasotec -) 20 mg PO DAILY [facility] Last Admin: 05/03/16 10:48 Dose: 20 mg Heparin Sodium (Porcine) (Heparin -) 5,000 unit SQ BID [facility] Last Admin: 05/03/16 10:49 Dose: 5,000 unit Ceftriaxone Sodium (Rocephin 1gm Ivpb (Pre-Docked)) 50 mls @ 100 mls/hr IVPB DAILY [facility] Last Admin: 05/03/16 10:49 Dose: 100 mls/hr Sodium Chloride (Normal Saline -) 1,000 mls @ 75 mls/hr IV ASDIR [facility] Stop: 05/04/16 06:29 Last Admin: 05/03/16 12:49 Dose: 75 mls/hr Methylprednisolone Sodium Succinate (Solu-Medrol -) 40 mg IVPB Q8H-IV [facility] Mometasone Furoate (Asmanex 220mcg -) 1 puff IH HS [facility] Last Admin: 05/02/16 21:56 Dose: 1 puff Tamsulosin HCl (Flomax -) 0.4 mg PO DAILY@0830 [facility] Last Admin: 05/03/16 12:49 Dose: 0.4 mg - Objective Vital Signs: Vital Signs Temperature 97.9 F 05/03/16 10:04 Pulse Rate 72 05/03/16 10:04 Respiratory Rate 18 05/03/16 10:04 Blood Pressure 138/66 05/03/16 10:04 O2 Sat by Pulse Oximetry (%) 94 L 05/03/16 09:00 Constitutional: Yes: No Distress Eyes: Yes: Conjunctiva Clear, EOM Intact HENT: Yes: Atraumatic, Normocephalic Neck: Yes: Other (Goiter) Cardiovascular: Yes: Regular Rate and Rhythm. No: JVD, Murmur Respiratory: Yes: Other (Coarse breath sounds) Gastrointestinal: Yes: Normal Bowel Sounds, Soft. No: Tenderness Edema: No Neurological: Yes: Alert, Oriented, Cran Nerves II-XII Intact ...Motor Strength: WNL Psychiatric: Yes: WNL Labs: CBC, BMP 05/03/16 05:45 05/03/16 05:45 Assessment/Plan 81 yo male former smoker, with CAD (occluded mid LCfx, 30% proximal and ostial RCA stenosis), hyperlipidemia, HTN, large multinodular goiter with tracheal deviation, who was admitted with cough and trouble breathing x 3 days. Currently being treated for COPD exacerbation. Trops in indeterminate range and in setting of renal dysfunction, not diagnostic of [place]. Patient also with mild rhabdomyolysis, with negative cardiac indices. Despite mildly elevated troponins of 0.06 -> 0.35 -> 0.38 -> 0.48, patient does not have any symptoms currently to suggest ACS. 05/02 BNP normal RECS: Continue atenolol and enalapril Will order echocardiogram to assess LV function and structural heart disease Further recs as per pulmonary/FM/endo/ENT/renal/ID Pending repeat trop trend, patient may need further cardiac evaluation with dobutamine nuclear stress test for ischemic evaluation given known CAD and mild troponin elevation, but no other clinical features to suggest ACS. Will follow. Call with questions.
[2016-05-03] MEDS: MOMETASONE FUROATE 220 MCG/IH INHALER IH SCH (23:24)
--- NOTE | 2016-05-04 02:26 | CONSULT ---
Consult Consult Specialty:: endocrine Referred by:: Reason for Consultation:: large thyroid mass - History of Present Illness Chief Complaint: shortness of breath History of Present Illness: 81y male with: PmHx: HLD, HTN, "Prostate problems," presents to ED via EMS from home w/ family. Patient with cough and trouble breathing x 3 days not getting better. Patient states he has had large thyroid for many years and fna was performed in the [facility],whoever thinks it was not cancer, he is not sure where or by whom.he denies weight loss or heat intolerance on sonography thyroid is large with left lobe mass evident - History Source History Provided By: Patient Limitations to Obtaining History: Clinical Condition - Past Medical History Cardio/Vascular: Yes: HTN, Hyperlipdemia Pulmonary: Yes: Bronchitis (2015), COPD Gastrointestinal: No: Ascites Hepatobiliary: No: Cirrhosis Renal/: Yes: BPH Infectious Disease: No: AIDS Psych: No: Addictions Rheumatology: No: Fibromyalgia ENT: No: Allergic Rhinitis - Past Surgical History Past Surgical History: Yes: Hernia Repair - Alcohol/Substance Use Hx Alcohol Use: Yes History of Substance Use: reports: None - Smoking History Smoking history: Former smoker (reduced 3 ya -. still smoked until 3 ya) Have you smoked in the past 12 months: No Aproximately how many cigarettes per day: 4 - Social History Usual Living Arrangement: With Spouse Home Medications - Allergies Allergies/Adverse Reactions: Allergies Allergy/AdvReac Type Severity Reaction Status Date / Time No Known Allergies Allergy Verified 05/02/16 00:25 - Home Medications Home Medications: Ambulatory Orders Aspirin [Aspirin EC] 81 mg PO DAILY 05/15/14 Atenolol [Tenormin -] 25 mg PO BID 05/15/14 Enalapril Maleate [Vasotec -] 20 mg PO DAILY 05/15/14 Fenofibrate 50 mg PO DAILY 05/15/14 Fluticasone Propionate [Flovent Diskus] 50 mcg IH ASDIR 05/15/14 Guaifenesin/Codeine Phos [Guaifenesin-Codeine Syrup] 5 ml PO Q6H PRN #100 ml 04/30 Simvastatin [Zocor -] 40 mg PO HS 05/15/14 Review of Systems - Review of Systems Constitutional: reports: Weakness Eyes: reports: No Symptoms HENT: reports: No Symptoms Neck: reports: No Symptoms Cardiovascular: reports: Palpitations, Shortness of Breath Respiratory: reports: Exercise Intolerance, SOB, SOB on Exertion Gastrointestinal: reports: Dysphagia Genitourinary: reports: No Symptoms Breasts: reports: No Symptoms Reported Musculoskeletal: reports: Muscle Pain, Muscle Cramps, Muscle Weakness Integumentary: reports: No Symptoms Neurological: reports: Unsteady Gait, Weakness Endocrine: reports: No Symptoms Hematology/Lymphatic: reports: No Symptoms Psychiatric: reports: No Symptoms Physical Exam Vital Signs: Vital Signs Temperature 97.9 F 05/04/16 01:42 Pulse Rate 67 05/04/16 01:42 Respiratory Rate 20 05/04/16 01:42 Blood Pressure 139/68 05/04/16 01:42 O2 Sat by Pulse Oximetry (%) 94 L 05/03/16 21:00 Constitutional: Yes: Calm Eyes: Yes: EOM Intact HENT: Yes: Normocephalic Neck: Yes: Thyromegaly (large mass palpable left lobe) Respiratory: Yes: SOB, Tachypnea Gastrointestinal: Yes: WNL ...Rectal Exam: Yes: Deferred Renal/: Yes: WNL Breast(s): Yes: WNL Musculoskeletal: Yes: WNL Extremities: Yes: WNL Edema: No Integumentary: Yes: WNL Neurological: Yes: Alert, Oriented Labs: CBC, BMP 05/03/16 05:45 05/03/16 05:45 Problem List - Problems (1) COPD exacerbation Code(s): J44.1 - CHRONIC OBSTRUCTIVE PULMONARY DISEASE W (ACUTE) EXACERBATION (2) Substernal thyroid goiter Code(s): E04.9 - NONTOXIC GOITER, UNSPECIFIED (3) Bronchitis Code(s): J40 - BRONCHITIS, NOT SPECIFIED ACUTE OR CHRONIC Assessment/Plan Current Active Problems COPD exacerbation (Acute) Distended bladder (Acute) Elevated troponin (Acute) Pneumonia (Acute) Substernal thyroid goiter (Acute) large mass left lobe 4 cm with tracheal deveation to left from substernal extension of goiter Abnormal Lab Results 05/03/16 05/03/16 05:45 05:45 Neutrophils % 88.2 H Lymphocytes % 5.7 L D BUN 25 H Random Glucose 122 H AST 43 H Alkaline Phosphatase 29 L D TSH 0.19 L Current Medications Generic Name Dose Route Start Last Admin Trade Name Vinod PRN Reason Stop Dose Admin Albuterol/Ipratropium 1 amp 05/02/16 12:00 05/03/16 23:16 Duoneb - NEB 1 amp QIDR SHERYL Administration Aspirin 81 mg 05/02/16 10:00 05/03/16 10:48 Ecotrin - PO 81 mg DAILY SHERYL Administration Atenolol 25 mg 05/02/16 10:00 05/03/16 22:30 Tenormin - PO 25 mg BID SHERYL Administration Enalapril Maleate 20 mg 05/02/16 10:00 05/03/16 10:48 Vasotec - PO 20 mg DAILY SHERYL Administration Heparin Sodium (Porcine) 5,000 unit 05/02/16 10:00 05/03/16 22:30 Heparin - SQ 5,000 unit BID SHERYL Administration Ceftriaxone Sodium 50 mls @ 100 mls/hr 05/02/16 10:45 05/03/16 10:49 Rocephin 1gm Ivpb (Pre-Docked) IVPB 100 mls/hr DAILY [facility] Administration Sodium Chloride 1,000 mls @ 75 mls/hr 05/03/16 12:30 05/03/16 12:49 Normal Saline - IV 05/04/16 06:29 75 mls/hr ASDIR SHERYL Administration Methylprednisolone Sodium Succinate 40 mg 05/03/16 18:00 05/03/16 17:26 Solu-Medrol - IVPB 40 mg Q8H-IV [facility]L Administration Mometasone Furoate 1 puff 05/02/16 22:00 05/03/16 23:24 Asmanex 220mcg - IH 1 puff HS SHERYL Administration Tamsulosin HCl 0.4 mg 05/03/16 11:45 05/03/16 12:49 Flomax - PO 0.4 mg DAILY@0830 [facility] Administration plan: euthyroid clinically will need fna biopsy left lobe mass previous record not found will ask family to locate path report
[2016-05-04] MEDS: methylPREDNISolone NA SUCC 40 MG/1 ML VIAL IVPB SCH ×3 (02:43→18:11)
[2016-05-04] MEDS: ALBUTEROL SO4 2.5/IPRATROPIUM 0.5 INH SOL 3 ML VIAL.NEB. NEB SCH ×4 (06:21→23:35)
[2016-05-04 08:30] LABS: MCH 30.1 pg (25.7-33.7); MCHC 33.4 g/dl (32.0-35.9); MEAN CELL VOLUME 90.2 fl (80-96); MEAN PLT VOLUME 10.4 fl (7.5-11.1); PLATELET COUNT 177 K/MM3 (134-434); RDW 13.8 % (11.9-15.9); WHITE BLOOD COUNT 10.4 K/mm3 (4.0-10.0)
--- NOTE | 2016-05-04 08:43 | PN ---
Progress Note, Physician Chief Complaint: LOOKS UNCOMFORTABLE AWARE OF THYROID PROBLEM - Current Medication List Current Medications: Active Medications Albuterol/Ipratropium (Duoneb -) 1 amp NEB QIDR [facility] Last Admin: 05/04/16 06:21 Dose: 1 amp Aspirin (Ecotrin -) 81 mg PO DAILY [facility] Last Admin: 05/03/16 10:48 Dose: 81 mg Atenolol (Tenormin -) 25 mg PO BID [facility] Last Admin: 05/03/16 22:30 Dose: 25 mg Enalapril Maleate (Vasotec -) 20 mg PO DAILY [facility] Last Admin: 05/03/16 10:48 Dose: 20 mg Heparin Sodium (Porcine) (Heparin -) 5,000 unit SQ BID [facility] Last Admin: 05/03/16 22:30 Dose: 5,000 unit Ceftriaxone Sodium (Rocephin 1gm Ivpb (Pre-Docked)) 50 mls @ 100 mls/hr IVPB DAILY [facility] Last Admin: 05/03/16 10:49 Dose: 100 mls/hr Methylprednisolone Sodium Succinate (Solu-Medrol -) 40 mg IVPB Q8H-IV [facility] Last Admin: 05/04/16 02:43 Dose: 40 mg Mometasone Furoate (Asmanex 220mcg -) 1 puff IH HS [facility] Last Admin: 05/03/16 23:24 Dose: 1 puff Tamsulosin HCl (Flomax -) 0.4 mg PO DAILY@0830 [facility] Last Admin: 05/03/16 12:49 Dose: 0.4 mg - Objective Vital Signs: Vital Signs Temperature 97.9 F 05/04/16 01:42 Pulse Rate 72 05/04/16 06:00 Respiratory Rate 20 05/04/16 06:00 Blood Pressure 137/77 05/04/16 06:00 O2 Sat by Pulse Oximetry (%) 94 L 05/03/16 21:00 Cardiovascular: Yes: WNL Respiratory: Yes: Diminished, Rhonchi Gastrointestinal: Yes: WNL Edema: No Labs: CBC, BMP 05/04/16 05:45 Problem List - Problems (1) Substernal thyroid goiter Code(s): E04.9 - NONTOXIC GOITER, UNSPECIFIED (2) Distended bladder Code(s): N32.89 - OTHER SPECIFIED DISORDERS OF BLADDER Assessment/Plan (1) COPD exacerbation Assessment/Plan: IV STEROIDS -> TAPERING NEBS PULM CONSULT IV ABX Code(s): J44.1 - CHRONIC OBSTRUCTIVE PULMONARY DISEASE W (ACUTE) EXACERBATION (2) Bronchitis Assessment/Plan: ABX CT OF CHEST -> GOITER WITH AIRWAY COMPROMISE Code(s): J40 - BRONCHITIS, NOT SPECIFIED ACUTE OR CHRONIC (3) Elevated troponin Assessment/Plan: MONITOR TROP TRENDING UP -> F/U CARDIO ON CASE -> WILL NEED STRESS TEST DO NOT SUSPECT ACS Code(s): R79.89 - OTHER SPECIFIED ABNORMAL FINDINGS OF BLOOD CHEMISTRY (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 RVR LOW Cr IMPROVED TO NL UCx -> REORDERED URO CONSULTED PASTOR KLEIN
[2016-05-04 09:01] LABS: TROPONIN I 0.35 ng/ml (0.00-0.05)
[2016-05-04 09:22] LABS: ALBUMIN 3.7 g/dl (3.4-5.0); BILIRUBIN,TOTAL 0.4 mg/dL (0.2-1.0); CALCIUM 9.1 mg/dL (8.5-10.1); CREATININE 1.2 mg/dL (0.7-1.3); FREE T4 1.19 ng/dl (0.76-1.16); MAGNESIUM 2.2 mg/dL (1.8-2.4); PHOSPHOROUS 3.2 mg/dL (2.5-4.9); THYROID STIMULATING HORMONE 0.28 uIU/ml (0.358-3.74); TOT PROT 6.9 g/dl (6.4-8.2)
--- NOTE | 2016-05-04 09:25 | PN ---
Progress Note, Physician History of Present Illness: Currently denies chest pain or dyspnea. - Current Medication List Current Medications: Active Medications Albuterol/Ipratropium (Duoneb -) 1 amp NEB QIDR [facility] Last Admin: 05/04/16 06:21 Dose: 1 amp Aspirin (Ecotrin -) 81 mg PO DAILY [facility] Last Admin: 05/03/16 10:48 Dose: 81 mg Atenolol (Tenormin -) 25 mg PO BID [facility] Last Admin: 05/03/16 22:30 Dose: 25 mg Enalapril Maleate (Vasotec -) 20 mg PO DAILY [facility] Last Admin: 05/03/16 10:48 Dose: 20 mg Heparin Sodium (Porcine) (Heparin -) 5,000 unit SQ BID [facility] Last Admin: 05/03/16 22:30 Dose: 5,000 unit Ceftriaxone Sodium (Rocephin 1gm Ivpb (Pre-Docked)) 50 mls @ 100 mls/hr IVPB DAILY [facility] Last Admin: 05/03/16 10:49 Dose: 100 mls/hr Methylprednisolone Sodium Succinate (Solu-Medrol -) 40 mg IVPB Q8H-IV [facility] Last Admin: 05/04/16 02:43 Dose: 40 mg Mometasone Furoate (Asmanex 220mcg -) 1 puff IH HS [facility] Last Admin: 05/03/16 23:24 Dose: 1 puff Tamsulosin HCl (Flomax -) 0.4 mg PO DAILY@0830 [facility] Last Admin: 05/03/16 12:49 Dose: 0.4 mg - Objective Vital Signs: Vital Signs Temperature 97.9 F 05/04/16 01:42 Pulse Rate 72 05/04/16 06:00 Respiratory Rate 20 05/04/16 06:00 Blood Pressure 137/77 05/04/16 06:00 O2 Sat by Pulse Oximetry (%) 94 L 05/03/16 21:00 Constitutional: Yes: No Distress Eyes: Yes: Conjunctiva Clear, EOM Intact HENT: Yes: Atraumatic, Normocephalic Cardiovascular: Yes: Regular Rate and Rhythm. No: JVD, Murmur Respiratory: Yes: CTA Bilaterally Gastrointestinal: Yes: Normal Bowel Sounds, Soft Edema: No Neurological: Yes: WNL ...Motor Strength: WNL Psychiatric: Yes: WNL Labs: CBC, BMP 05/04/16 05:45 Assessment/Plan 81 yo male former smoker, with CAD (occluded mid LCfx, 30% proximal and ostial RCA stenosis), hyperlipidemia, HTN, large multinodular goiter with tracheal deviation, who was admitted with cough and trouble breathing x 3 days. Currently being treated for COPD exacerbation. Trops in indeterminate range and in setting of renal dysfunction, not diagnostic of [place]. Patient also with mild rhabdomyolysis, with negative cardiac indices. Despite mildly elevated troponins of 0.06 -> 0.35 -> 0.38 -> 0.48 -> 0.35, patient does not have any symptoms currently to suggest ACS. 05/02 BNP normal RECS: Continue atenolol and enalapril Will order echocardiogram to assess LV function and structural heart disease Will order dobutamine nuclear stress test for ischemic evaluation given known CAD and mild troponin elevation, but no other clinical features to suggest ACS. Will follow. Call with questions. Further recs as per pulmonary/FM/endo/ENT/renal/ID
[2016-05-04] MEDS: ASPIRIN COATED 81 MG TABLET.EC PO SCH (10:37)
[2016-05-04] MEDS: ENALAPRIL MALEATE 10 MG TABLET (FP) PO SCH (10:37)
[2016-05-04] MEDS: HEPARIN NA (PORCINE) 5,000 UNITS/ML 1ML VIAL SQ SCH ×2 (10:38→21:16)
[2016-05-04] MEDS: CEFTRIAXONE 50 ML IVPB SCH (10:38)
[2016-05-04] MEDS: ATENOLOL 25 MG TABLET (FP) PO SCH ×2 (10:38→21:16)
[2016-05-04] MEDS: TAMSULOSIN HCL 0.4 MG CAP.ER.24H (FP) PO SCH (10:40)
--- NOTE | 2016-05-04 12:14 | PN ---
Progress Note (short form) - Note Progress Note: PULMONARY OOB TO CHAIR OFFERS NO COMPLAINTS APPEARS STABLE VSS/AFEBRILE ANICTERIC SCATTERED EXP RHONCHI S1S2 BS+ OBESE NO EDEMA LABS/MEDS/NOTES/IMAGING/MICRO/ REVIEWED SPO2 PRE/POST AMB O2 NOTED LIKELY ACUTE BRONCHITIS WITH A/E COPD FORMER SMOKER LARGE SUBSTERNAL MUTINODULAR GOITER W LEFTWARD TRACHEAL DEVIATION AND COMPRESSION HTN/HPL SOLUMEDROL TO BE TAPERED/BRONCHODILATORS/O2 SUPPLEMENTATION/ANTIBIOTICS/ LARGE SUBSTERNAL THYROID WHICH IS LIKELY CAUSING RESPIRATORY COMPROMISE GIVEN DEGREE OF TRACHEAL COMPRESSION NO NEED FOR HOME O2 Favio DRAPER MD Problem List - Problems (1) COPD exacerbation Code(s): J44.1 - CHRONIC OBSTRUCTIVE PULMONARY DISEASE W (ACUTE) EXACERBATION (2) Bronchitis Code(s): J40 - BRONCHITIS, NOT SPECIFIED ACUTE OR CHRONIC (3) Substernal thyroid goiter Code(s): E04.9 - NONTOXIC GOITER, UNSPECIFIED
[2016-05-04] MEDS: MOMETASONE FUROATE 220 MCG/IH INHALER IH SCH (21:16)
[2016-05-05] MEDS: methylPREDNISolone NA SUCC 40 MG/1 ML VIAL IVPB SCH ×3 (01:08→22:11)
[2016-05-05] MEDS: ALBUTEROL SO4 2.5/IPRATROPIUM 0.5 INH SOL 3 ML VIAL.NEB. NEB SCH ×3 (06:26→23:40)
[2016-05-05 07:27] LABS: BASOPHIL 0.5 % (0-2.0); MCH 30.3 pg (25.7-33.7); MCHC 33.6 g/dl (32.0-35.9); MEAN CELL VOLUME 90.3 fl (80-96); MEAN PLT VOLUME 10.4 fl (7.5-11.1); NEUTROPHILS 91.3 % (42.8-82.8); PLATELET COUNT 176 K/MM3 (134-434); RDW 13.7 % (11.9-15.9); WHITE BLOOD COUNT 10.4 K/mm3 (4.0-10.0)
[2016-05-05 07:42] LABS: ALBUMIN 3.3 g/dl (3.4-5.0); CALCIUM 8.7 mg/dL (8.5-10.1)
[2016-05-05 07:48] LABS: BILIRUBIN,TOTAL 0.3 mg/dL (0.2-1.0); CREATININE 1.2 mg/dL (0.7-1.3); TOT PROT 6.1 g/dl (6.4-8.2); TROPONIN I 0.21 ng/ml (0.00-0.05)
--- NOTE | 2016-05-05 07:48 | CON.GU ---
Consult Consult Specialty:: urology Referred by:: Reason for Consultation:: distended bladder - History of Present Illness Chief Complaint: distended bladder History of Present Illness: patient with history of moderate frequency and urgency. Nocturia x 3 with decreased flow. Denies previous urologic surgery, family history of CAP, urinary retention, gross hematuria, renal colic, or recurrent uti's. - History Source History Provided By: Patient Limitations to Obtaining History: No Limitations - Past Medical History Cardio/Vascular: Yes: HTN, Hyperlipdemia Pulmonary: Yes: Bronchitis (2015), COPD Gastrointestinal: No: Ascites Hepatobiliary: No: Cirrhosis Renal/: Yes: BPH Infectious Disease: No: AIDS Psych: No: Addictions Rheumatology: No: Fibromyalgia ENT: No: Allergic Rhinitis - Past Surgical History Past Surgical History: Yes: Hernia Repair - Alcohol/Substance Use Hx Alcohol Use: Yes History of Substance Use: reports: None - Smoking History Smoking history: Former smoker (reduced 3 ya -. still smoked until 3 ya) Have you smoked in the past 12 months: No Aproximately how many cigarettes per day: 4 - Social History Usual Living Arrangement: With Spouse Home Medications - Allergies Allergies/Adverse Reactions: Allergies Allergy/AdvReac Type Severity Reaction Status Date / Time No Known Allergies Allergy Verified 05/02/16 00:25 - Home Medications Home Medications: Ambulatory Orders Aspirin [Aspirin EC] 81 mg PO DAILY 05/15/14 Atenolol [Tenormin -] 25 mg PO BID 05/15/14 Enalapril Maleate [Vasotec -] 20 mg PO DAILY 05/15/14 Fenofibrate 50 mg PO DAILY 05/15/14 Fluticasone Propionate [Flovent Diskus] 50 mcg IH ASDIR 05/15/14 Guaifenesin/Codeine Phos [Guaifenesin-Codeine Syrup] 5 ml PO Q6H PRN #100 ml 04/30 Simvastatin [Zocor -] 40 mg PO HS 05/15/14 Physical Exam- Vital Signs: Vital Signs Temperature 98.3 F 05/05/16 06:00 Pulse Rate 64 05/05/16 06:00 Respiratory Rate 18 05/05/16 06:00 Blood Pressure 159/78 05/05/16 06:00 O2 Sat by Pulse Oximetry (%) 94 L 05/04/16 21:00 Constitutional: Yes: Well Nourished, No Distress, Calm Eyes: Yes: WNL, Conjunctiva Clear, EOM Intact HENT: Yes: WNL, Atraumatic, Normocephalic Neck: Yes: Supple, Trachea Midline Gastrointestinal: Yes: WNL, Normal Bowel Sounds, Soft Renal/: Yes: WNL Kidneys: Yes: Enlarged, Firm Pelvis: Yes: WNL, Bladder Non Palpable Testicles: Yes: WNL, Descended Scrotum: Yes: WNL Penis: Yes: WNL Prostate Exam: Yes: Asymmetrical, Swollen Labs: CBC, BMP 05/05/16 05:35 Assessment/Plan impression bph plan continue with flomax will follow-up as outpatient for uroflow analysis discussed with patient x 20 minutes
--- NOTE | 2016-05-05 08:22 | PN ---
Progress Note, Physician History of Present Illness: FEELS BETTER - Current Medication List Current Medications: Active Medications Albuterol/Ipratropium (Duoneb -) 1 amp NEB QIDR [facility] Last Admin: 05/05/16 06:26 Dose: 1 amp Aspirin (Ecotrin -) 81 mg PO DAILY [facility] Last Admin: 05/04/16 10:37 Dose: 81 mg Atenolol (Tenormin -) 25 mg PO BID [facility] Last Admin: 05/04/16 21:16 Dose: 25 mg Enalapril Maleate (Vasotec -) 20 mg PO DAILY [facility] Last Admin: 05/04/16 10:37 Dose: 20 mg Heparin Sodium (Porcine) (Heparin -) 5,000 unit SQ BID [facility] Last Admin: 05/04/16 21:16 Dose: 5,000 unit Ceftriaxone Sodium (Rocephin 1gm Ivpb (Pre-Docked)) 50 mls @ 100 mls/hr IVPB DAILY [facility] Last Admin: 05/04/16 10:38 Dose: 100 mls/hr Mometasone Furoate (Asmanex 220mcg -) 1 puff IH HS [facility] Last Admin: 05/04/16 21:16 Dose: 1 puff Tamsulosin HCl (Flomax -) 0.4 mg PO DAILY@0830 [facility] Last Admin: 05/04/16 10:40 Dose: 0.4 mg - Objective Vital Signs: Vital Signs Temperature 98.3 F 05/05/16 06:00 Pulse Rate 64 05/05/16 06:00 Respiratory Rate 18 05/05/16 06:00 Blood Pressure 159/78 05/05/16 06:00 O2 Sat by Pulse Oximetry (%) 94 L 05/04/16 21:00 Cardiovascular: Yes: Regular Rate and Rhythm Respiratory: Yes: Diminished, Rhonchi Gastrointestinal: Yes: Normal Bowel Sounds, Soft Labs: CBC, BMP 05/05/16 05:35 05/05/16 05:35 Problem List - Problems (1) COPD exacerbation Code(s): J44.1 - CHRONIC OBSTRUCTIVE PULMONARY DISEASE W (ACUTE) EXACERBATION (2) Bronchitis Code(s): J40 - BRONCHITIS, NOT SPECIFIED ACUTE OR CHRONIC (3) Elevated troponin Code(s): R79.89 - OTHER SPECIFIED ABNORMAL FINDINGS OF BLOOD CHEMISTRY Assessment/Plan (1) COPD exacerbation Assessment/Plan: IV STEROIDS -> TAPERING NEBS PULM CONSULT IV ABX Code(s): J44.1 - CHRONIC OBSTRUCTIVE PULMONARY DISEASE W (ACUTE) EXACERBATION (2) Bronchitis Assessment/Plan: ABX CT OF CHEST -> GOITER WITH AIRWAY COMPROMISE Code(s): J40 - BRONCHITIS, NOT SPECIFIED ACUTE OR CHRONIC (3) Elevated troponin Assessment/Plan: MONITOR TROP TRENDING UP -> F/U CARDIO ON CASE -> WILL NEED STRESS TEST DO NOT SUSPECT ACS Code(s): R79.89 - OTHER SPECIFIED ABNORMAL FINDINGS OF BLOOD CHEMISTRY (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 RVR LOW Cr IMPROVED TO NL UCx -> REORDERED URO CONSULTED
--- NOTE | 2016-05-05 09:12 | PN ---
Progress Note (short form) - Note Progress Note: clinically improved reports improvement in breathing Vital Signs Period Temp Pulse Resp BP Sys/Rooney Pulse Ox Last 24 Hr 98.0 F-98.3 F 64-82 18-18 137-159/69-88 94 cor-rrr llungs clear abd soft,nt ext no edema CBC, BMP 05/05/16 05:35 05/05/16 05:35 Microbiology 05/02/16 00:38 Blood - Peripheral Venous Blood Culture - Preliminary NO GROWTH OBTAINED AFTER 72 HOURS, INCUBATION TO CONTINUE FOR 2 DAYS. 05/02/16 00:38 Blood - Peripheral Venous Blood Culture - Preliminary NO GROWTH OBTAINED AFTER 72 HOURS, INCUBATION TO CONTINUE FOR 2 DAYS. 05/02/16 11:00 Nasopharyngeal Swab Respiratory Virus Panel - Preliminary 05/02/16 11:00 Nasopharyngeal Swab Influenza Types A,B Antigen (BETTINA) - Final 05/02/16 11:00 Nasopharyngeal Swab - Final a/p copd exacerbation day #4 rocephin steroid taper can change to po ceftin to complete 7 days f/u goiter with endocrine cad- per cardiology please call back if needed Problem List - Problems (1) COPD exacerbation Code(s): J44.1 - CHRONIC OBSTRUCTIVE PULMONARY DISEASE W (ACUTE) EXACERBATION (2) Bronchitis Code(s): J40 - BRONCHITIS, NOT SPECIFIED ACUTE OR CHRONIC (3) Elevated troponin Code(s): R79.89 - OTHER SPECIFIED ABNORMAL FINDINGS OF BLOOD CHEMISTRY (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
--- NOTE | 2016-05-05 09:57 | PN ---
Progress Note, Physician History of Present Illness: Currently denies chest pain or dyspnea. - Current Medication List Current Medications: Active Medications Albuterol/Ipratropium (Duoneb -) 1 amp NEB QIDR [facility] Last Admin: 05/05/16 06:26 Dose: 1 amp Aspirin (Ecotrin -) 81 mg PO DAILY [facility] Last Admin: 05/04/16 10:37 Dose: 81 mg Atenolol (Tenormin -) 25 mg PO BID [facility] Last Admin: 05/04/16 21:16 Dose: 25 mg Enalapril Maleate (Vasotec -) 20 mg PO DAILY [facility] Last Admin: 05/04/16 10:37 Dose: 20 mg Heparin Sodium (Porcine) (Heparin -) 5,000 unit SQ BID [facility] Last Admin: 05/04/16 21:16 Dose: 5,000 unit Ceftriaxone Sodium (Rocephin 1gm Ivpb (Pre-Docked)) 50 mls @ 100 mls/hr IVPB DAILY [facility] Last Admin: 05/04/16 10:38 Dose: 100 mls/hr Methylprednisolone Sodium Succinate (Solu-Medrol -) 40 mg IVPB BID [facility] Mometasone Furoate (Asmanex 220mcg -) 1 puff IH HS [facility] Last Admin: 05/04/16 21:16 Dose: 1 puff Tamsulosin HCl (Flomax -) 0.4 mg PO DAILY@0830 [facility] Last Admin: 05/04/16 10:40 Dose: 0.4 mg - Objective Vital Signs: Vital Signs Temperature 98.2 F 05/05/16 08:05 Pulse Rate 78 05/05/16 08:05 Respiratory Rate 18 05/05/16 08:05 Blood Pressure 148/80 05/05/16 08:05 O2 Sat by Pulse Oximetry (%) 94 L 05/04/16 21:00 Constitutional: Yes: No Distress Eyes: Yes: Conjunctiva Clear, EOM Intact HENT: Yes: Atraumatic, Normocephalic Cardiovascular: Yes: Regular Rate and Rhythm Respiratory: Yes: CTA Bilaterally Gastrointestinal: Yes: Normal Bowel Sounds, Soft Edema: No Labs: CBC, BMP 05/05/16 05:35 05/05/16 05:35 Assessment/Plan 81 yo male former smoker, with CAD (occluded mid LCfx, 30% proximal and ostial RCA stenosis), hyperlipidemia, HTN, large multinodular goiter with tracheal deviation, who was admitted with cough and trouble breathing x 3 days. Currently being treated for COPD exacerbation. Trops in indeterminate range and in setting of renal dysfunction, not diagnostic of ID. Patient also with mild rhabdomyolysis, with negative cardiac indices. Despite mildly elevated troponins of 0.06 -> 0.35 -> 0.38 -> 0.48 -> 0.35, patient does not have any symptoms currently to suggest ACS. 05/02 BNP normal RECS: Continue atenolol and enalapril Echocardiogram to assess LV function and structural heart disease, pending today Dobutamine nuclear stress test for ischemic evaluation given known CAD and mild troponin elevation, but no other clinical features to suggest ACS. Will follow. Call with questions. Further recs as per pulmonary/FM/endo/ENT/renal/ID
[2016-05-05] MEDS ORDERED: DOBUTAMINE HCL 100,000 MCG in DEXTROSE 5%-WATER - 92 ML IVPB ONE (10:45)
--- NOTE | 2016-05-05 14:39 | PN ---
Progress Note, Physician Chief Complaint: Patient comfortable Cardiac w/u in progress, Reports feeling much better Excellent urine output. No chest pain. - Current Medication List Current Medications: Active Medications Albuterol/Ipratropium (Duoneb -) 1 amp NEB QIDR [facility] Last Admin: 05/05/16 06:26 Dose: 1 amp Aspirin (Ecotrin -) 81 mg PO DAILY [facility] Last Admin: 05/04/16 10:37 Dose: 81 mg Atenolol (Tenormin -) 25 mg PO BID [facility] Last Admin: 05/04/16 21:16 Dose: 25 mg Enalapril Maleate (Vasotec -) 20 mg PO DAILY [facility] Last Admin: 05/04/16 10:37 Dose: 20 mg Heparin Sodium (Porcine) (Heparin -) 5,000 unit SQ BID [facility] Last Admin: 05/04/16 21:16 Dose: 5,000 unit Ceftriaxone Sodium (Rocephin 1gm Ivpb (Pre-Docked)) 50 mls @ 100 mls/hr IVPB DAILY [facility] Last Admin: 05/04/16 10:38 Dose: 100 mls/hr Dobutamine HCl 100,000 mcg/ (Dextrose) 100 mls @ 26.39 mls/hr IVPB ONCE ONE; 5 MCG/KG/MIN PRN Reason: Protocol Stop: 05/05/16 14:32 Last Admin: 05/05/16 13:56 Dose: 26.39 mls/hr Methylprednisolone Sodium Succinate (Solu-Medrol -) 40 mg IVPB BID [facility] Mometasone Furoate (Asmanex 220mcg -) 1 puff IH HS [facility] Last Admin: 05/04/16 21:16 Dose: 1 puff Tamsulosin HCl (Flomax -) 0.4 mg PO DAILY@0830 [facility] Last Admin: 05/04/16 10:40 Dose: 0.4 mg - Objective Vital Signs: Vital Signs Temperature 98.2 F 05/05/16 08:05 Pulse Rate 78 05/05/16 08:05 Respiratory Rate 18 05/05/16 08:05 Blood Pressure 148/80 05/05/16 08:05 O2 Sat by Pulse Oximetry (%) 94 L 05/04/16 21:00 Constitutional: Yes: Well Nourished, Calm Eyes: Yes: WNL HENT: Yes: Atraumatic Neck: Yes: Supple Cardiovascular: Yes: Pulse Irregular, S1, S2, S3, S4 Respiratory: Yes: Diminished, Hyperresonant, Rales, Rhonchi Gastrointestinal: Yes: Normal Bowel Sounds, Soft, Abdomen, Obese Musculoskeletal: Yes: Back Pain Labs: CBC, BMP 05/05/16 05:35 05/05/16 05:35 Problem List - Problems (1) COPD exacerbation Code(s): J44.1 - CHRONIC OBSTRUCTIVE PULMONARY DISEASE W (ACUTE) EXACERBATION (2) Distended bladder Code(s): N32.89 - OTHER SPECIFIED DISORDERS OF BLADDER (3) Elevated troponin Code(s): R79.89 - OTHER SPECIFIED ABNORMAL FINDINGS OF BLOOD CHEMISTRY (4) Pneumonia Code(s): J18.9 - PNEUMONIA, UNSPECIFIED ORGANISM Qualifiers: Pneumonia type: due to unspecified organism Laterality: right Lung location: lower lobe of lung Qualified Code(s): J18.9 - Pneumonia, unspecified organism (5) Substernal thyroid goiter Code(s): E04.9 - NONTOXIC GOITER, UNSPECIFIED (6) Bronchitis Code(s): J40 - BRONCHITIS, NOT SPECIFIED ACUTE OR CHRONIC (7) Congestive cardiac failure Code(s): I50.9 - HEART FAILURE, UNSPECIFIED (8) Chronic kidney disease Code(s): N18.9 - CHRONIC KIDNEY DISEASE, UNSPECIFIED (9) Acute kidney failure Code(s): N17.9 - ACUTE KIDNEY FAILURE, UNSPECIFIED Assessment/Plan This is an 81 y/o male with history of CKD, now with stable azotemia. COPD exacerbation, on Steroids Respiratory status much better. Will continue to monitor the renal functions with you. Dayanara Kendrick MD
[2016-05-05] MEDS: CEFTRIAXONE 50 ML IVPB SCH (14:56)
[2016-05-05] MEDS: ENALAPRIL MALEATE 10 MG TABLET (FP) PO SCH (14:56)
[2016-05-05] MEDS: ASPIRIN COATED 81 MG TABLET.EC PO SCH (14:56)
[2016-05-05] MEDS: TAMSULOSIN HCL 0.4 MG CAP.ER.24H (FP) PO SCH (14:56)
[2016-05-05] MEDS: HEPARIN NA (PORCINE) 5,000 UNITS/ML 1ML VIAL SQ SCH ×2 (14:56→22:11)
[2016-05-05] MEDS: ATENOLOL 25 MG TABLET (FP) PO SCH ×2 (14:56→22:11)
--- NOTE | 2016-05-05 16:42 | PN ---
Progress Note, Physician History of Present Illness: pulmonary alert,nad,-sob,-cp.pt s/p stress thal +for ischemia - Current Medication List Current Medications: Active Medications Albuterol/Ipratropium (Duoneb -) 1 amp NEB QIDR [facility] Last Admin: 05/05/16 06:26 Dose: 1 amp Aspirin (Ecotrin -) 81 mg PO DAILY [facility] Last Admin: 05/05/16 14:56 Dose: 81 mg Atenolol (Tenormin -) 25 mg PO BID [facility] Last Admin: 05/05/16 14:56 Dose: 25 mg Enalapril Maleate (Vasotec -) 20 mg PO DAILY [facility] Last Admin: 05/05/16 14:56 Dose: 20 mg Heparin Sodium (Porcine) (Heparin -) 5,000 unit SQ BID [facility] Last Admin: 05/05/16 14:56 Dose: 5,000 unit Ceftriaxone Sodium (Rocephin 1gm Ivpb (Pre-Docked)) 50 mls @ 100 mls/hr IVPB DAILY [facility] Last Admin: 05/05/16 14:56 Dose: 100 mls/hr Methylprednisolone Sodium Succinate (Solu-Medrol -) 40 mg IVPB BID [facility] Last Admin: 05/05/16 14:57 Dose: 40 mg Mometasone Furoate (Asmanex 220mcg -) 1 puff IH HS [facility] Last Admin: 05/04/16 21:16 Dose: 1 puff Tamsulosin HCl (Flomax -) 0.4 mg PO DAILY@0830 [facility] Last Admin: 05/05/16 14:56 Dose: 0.4 mg - Objective Vital Signs: Vital Signs Temperature 98.2 F 05/05/16 08:05 Pulse Rate 78 05/05/16 08:05 Respiratory Rate 18 05/05/16 08:05 Blood Pressure 148/80 05/05/16 08:05 O2 Sat by Pulse Oximetry (%) 94 L 05/04/16 21:00 Constitutional: Yes: Well Nourished, Calm Eyes: Yes: WNL HENT: Yes: WNL Neck: Yes: Supple Cardiovascular: Yes: Regular Rate and Rhythm, S1, S2 Respiratory: Yes: CTA Bilaterally Gastrointestinal: Yes: WNL Extremities: Yes: WNL Edema: No Labs: CBC, BMP 05/05/16 05:35 05/05/16 05:35 Assessment/Plan Problem List - Problems (1) COPD exacerbation Code(s): J44.1 - CHRONIC OBSTRUCTIVE PULMONARY DISEASE W (ACUTE) EXACERBATION (2) Bronchitis Code(s): J40 - BRONCHITIS, NOT SPECIFIED ACUTE OR CHRONIC (3) Substernal thyroid goiter Code(s): E04.9 - NONTOXIC GOITER, UNSPECIFIED 4 [facility] Assessment/Plan LIKELY ACUTE BRONCHITIS WITH A/E COPD FORMER SMOKER LARGE SUBSTERNAL MUTINODULAR GOITER W LEFTWARD TRACHEAL DEVIATION AND COMPRESSION HTN HPL SOLUMEDROL TAPER BRONCHODILATORS O2 SUPPLEMENTATION ANTIBIOTICS W/U LARGE SUBSTERNAL THYROID IT IS LIKELY CAUSING RESPIRATORY COMPROMISE GIVEN DEGREE OF TRACHEAL COMPRESSION PER ENDO DR AYALA
--- NOTE | 2016-05-05 18:55 | CON.ENT ---
Consult Consult Specialty:: ENT Referred by:: Dr. Gottlieb Reason for Consultation:: goiter - History of Present Illness Chief Complaint: shortness of breath History of Present Illness: 81 yo M admitted with shortness of breath dx COPD with acute exacerbation CT chest shows markedly enlarged thyroid gland with right sided retrosternal extension, significant mass effect on thoracic trachea from chart pt has hx of known thyroid mass for many years, ?biopsy in [place], not clear who followed and what prior evaluation and intervention he has had. also complains of nasal breathing problem, on nasal oxygen - History Source History Provided By: Patient, Medical Record Limitations to Obtaining History: Language Barrier - Past Medical History Cardio/Vascular: Yes: HTN, Hyperlipdemia Pulmonary: Yes: Bronchitis (2015), COPD Gastrointestinal: No: Ascites Hepatobiliary: No: Cirrhosis Renal/: Yes: BPH Infectious Disease: No: AIDS Psych: No: Addictions Rheumatology: No: Fibromyalgia ENT: No: Allergic Rhinitis - Past Surgical History Past Surgical History: Yes: Hernia Repair - Alcohol/Substance Use Hx Alcohol Use: Yes History of Substance Use: reports: None - Smoking History Smoking history: Former smoker (reduced 3 ya -. still smoked until 3 ya) Have you smoked in the past 12 months: No Aproximately how many cigarettes per day: 4 - Social History Usual Living Arrangement: With Spouse Home Medications - Allergies Allergies/Adverse Reactions: Allergies Allergy/AdvReac Type Severity Reaction Status Date / Time No Known Allergies Allergy Verified 05/02/16 00:25 - Home Medications Home Medications: Ambulatory Orders Aspirin [Aspirin EC] 81 mg PO DAILY 05/15/14 Atenolol [Tenormin -] 25 mg PO BID 05/15/14 Enalapril Maleate [Vasotec -] 20 mg PO DAILY 05/15/14 Fenofibrate 50 mg PO DAILY 05/15/14 Fluticasone Propionate [Flovent Diskus] 50 mcg IH ASDIR 05/15/14 Guaifenesin/Codeine Phos [Guaifenesin-Codeine Syrup] 5 ml PO Q6H PRN #100 ml 04/30 Simvastatin [Zocor -] 40 mg PO HS 05/15/14 Physical Exam-ENT Vital Signs: Vital Signs Temperature 98.2 F 05/05/16 08:05 Pulse Rate 87 05/05/16 17:58 Respiratory Rate 18 05/05/16 17:58 Blood Pressure 133/94 05/05/16 17:58 O2 Sat by Pulse Oximetry (%) 94 L 05/04/16 21:00 Constitutional: Yes: Well Nourished, No Distress, Calm Head: Yes: WNL Face: Yes: WNL Eyes: Yes: WNL Nose: Yes: Septum Deviated Nasal Passage: Yes: Other (dry, crusted, dry blood left anterior septum) Oral/Pharynx: Yes: WNL (dentures, oral cavity and oropharynx WNL, Flexible laryngoscopy: nasopharynx normal, base of tongue WNL, hypopharynx WNL endolarynx shows normal anatomy and no lesion, vocal cords mobile symmetrically , no stridor, voice clear,) Outer Ear: Yes: WNL Ear Canal: Yes: Cerumen Neck: Yes: Thyromegaly (left lobe enlarged, right lobe slightly palpable.) Respiratory: Yes: WNL Imaging - Results Chest X-ray: Report Reviewed, Image Reviewed Cat Scan: Report Reviewed, Image Reviewed (massive right retrosternal goiter/ right paratracheal mass, significant airway compression mid trachea, reaches bifurcation, and level of pulmonary veins, extends below level of aortic arch.) Ultrasound: Report Reviewed (shows multinodular goiter ultrasound does not appreciate entire thyroid size because of the mediastinal portion that is not imaged by ultrasound) Problem List - Problems (1) Substernal thyroid goiter Assessment/Plan: longstanding multinodular goiter, severe right retrosternal extension with large mediastinal component, tracheal deviation/compression, extends below level of aortic arch and adjacent to pulmonary veins. The degree of mediastinal involvement favors evaluation and possible involvement of thoracic surgery because of inferior extent of this mass, may not be able to fully access from cervical approach only. Sternotomy may be required because of the large size of this mediastinal component - it measures 9.8 cm (craniocaudad) x 3.6 (AP) x 6 cm (transverse). This would present a challenge to deliver through the thoracic inlet AND to allow safe dissection inferiorly around the great vessels. Agree that tracheal compression problematic. Pt has multiple surgical risks, would consider ultimate surgical treatment at a tertiary medical center. Code(s): E04.9 - NONTOXIC GOITER, UNSPECIFIED (2) Rhinitis Assessment/Plan: significant dryness and crusting both nasal cavities, turbinates oxygen therapy contributory Recommend: humidify oxygen source nasal saline spray for nasal moisture (ordered) Thank you for consultation, Alexandro Kimball MD FACS Code(s): J31.0 - CHRONIC RHINITIS Qualifiers: Rhinitis type: other Qualified Code(s): J31.0 - Chronic rhinitis
[2016-05-05] MEDS: MOMETASONE FUROATE 220 MCG/IH INHALER IH SCH (22:11)
[2016-05-06] MEDS: ALBUTEROL SO4 2.5/IPRATROPIUM 0.5 INH SOL 3 ML VIAL.NEB. NEB SCH ×4 (06:36→23:15)
[2016-05-06 07:51] LABS: ALBUMIN 3.2 g/dl (3.4-5.0); CALCIUM 8.9 mg/dL (8.5-10.1)
[2016-05-06 07:55] LABS: ALK PHOS 34 U/L (45-117); ANION GAP 7 (8-16); BILIRUBIN,TOTAL 0.4 mg/dL (0.2-1.0); CO2 29 mmol/L (21-32); CREATININE 1.1 mg/dL (0.7-1.3); GLUCOSE,RANDOM 123 mg/dL (74-106); SGOT/AST 48 U/L (15-37); SGPT/ALT 69 U/L (12-78)
--- NOTE | 2016-05-06 08:22 | PN ---
Progress Note, Physician History of Present Illness: FEELS BETTER NO CP OR SOB - Current Medication List Current Medications: Active Medications Albuterol/Ipratropium (Duoneb -) 1 amp NEB QIDR [facility] Last Admin: 05/06/16 06:36 Dose: 1 amp Aspirin (Ecotrin -) 81 mg PO DAILY [facility] Last Admin: 05/05/16 14:56 Dose: 81 mg Atenolol (Tenormin -) 25 mg PO BID [facility] Last Admin: 05/05/16 22:11 Dose: 25 mg Enalapril Maleate (Vasotec -) 20 mg PO DAILY [facility] Last Admin: 05/05/16 14:56 Dose: 20 mg Heparin Sodium (Porcine) (Heparin -) 5,000 unit SQ BID [facility] Last Admin: 05/05/16 22:11 Dose: 5,000 unit Ceftriaxone Sodium (Rocephin 1gm Ivpb (Pre-Docked)) 50 mls @ 100 mls/hr IVPB DAILY [facility] Last Admin: 05/05/16 14:56 Dose: 100 mls/hr Methylprednisolone Sodium Succinate (Solu-Medrol -) 40 mg IVPB BID [facility] Last Admin: 05/05/16 22:11 Dose: 40 mg Mometasone Furoate (Asmanex 220mcg -) 1 puff IH HS [facility] Last Admin: 05/05/16 22:11 Dose: 1 puff Tamsulosin HCl (Flomax -) 0.4 mg PO DAILY@0830 [facility] Last Admin: 05/05/16 14:56 Dose: 0.4 mg - Objective Vital Signs: Vital Signs Temperature 96.8 F L 05/06/16 06:00 Pulse Rate 60 05/06/16 06:00 Respiratory Rate 20 05/06/16 06:00 Blood Pressure 135/72 05/06/16 06:00 O2 Sat by Pulse Oximetry (%) 94 L 05/05/16 21:00 Cardiovascular: Yes: Regular Rate and Rhythm Respiratory: Yes: CTA Bilaterally Gastrointestinal: Yes: Normal Bowel Sounds, Soft Labs: CBC, BMP 05/05/16 05:35 05/06/16 05:35 Problem List - Problems (1) COPD exacerbation Code(s): J44.1 - CHRONIC OBSTRUCTIVE PULMONARY DISEASE W (ACUTE) EXACERBATION (2) Bronchitis Code(s): J40 - BRONCHITIS, NOT SPECIFIED ACUTE OR CHRONIC (3) Elevated troponin Code(s): R79.89 - OTHER SPECIFIED ABNORMAL FINDINGS OF BLOOD CHEMISTRY Assessment/Plan (1) COPD exacerbation Assessment/Plan: IV STEROIDS -> TAPERING--TO PO NEBS PULM CONSULT IV ABX--TO PO Code(s): J44.1 - CHRONIC OBSTRUCTIVE PULMONARY DISEASE W (ACUTE) EXACERBATION (2) Bronchitis Assessment/Plan: ABX--PO CT OF CHEST -> GOITER WITH AIRWAY COMPROMISE Code(s): J40 - BRONCHITIS, NOT SPECIFIED ACUTE OR CHRONIC (3) Elevated troponin--Positive Stress Test Assessment/Plan: MONITOR TROP TRENDING DOWN -> POSITIVE STRESS TEST CARDIO ON CASE -> WILL DISCUSS FURTHER PLAN Code(s): R79.89 - OTHER SPECIFIED ABNORMAL FINDINGS OF BLOOD CHEMISTRY (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 RVR LOW Cr IMPROVED TO NL UCx -> REORDERED URO CONSULTED
[2016-05-06] MEDS: TAMSULOSIN HCL 0.4 MG CAP.ER.24H (FP) PO SCH (09:05)
[2016-05-06] MEDS: predniSONE 20 MG TABLET (UD) PO SCH (09:08)
[2016-05-06] MEDS: CEFUROXIME AXETIL 500 MG TABLET PO SCH ×2 (09:08→22:09)
[2016-05-06] MEDS: HEPARIN NA (PORCINE) 5,000 UNITS/ML 1ML VIAL SQ SCH ×2 (09:09→22:09)
[2016-05-06] MEDS: ENALAPRIL MALEATE 10 MG TABLET (FP) PO SCH (09:09)
[2016-05-06] MEDS: ASPIRIN COATED 81 MG TABLET.EC PO SCH (09:09)
[2016-05-06] MEDS: ATENOLOL 25 MG TABLET (FP) PO SCH ×2 (09:09→22:09)
--- NOTE | 2016-05-06 10:31 | PN ---
Progress Note, Physician History of Present Illness: pulmonary alert,oob-chair,-sob. - Current Medication List Current Medications: Active Medications Albuterol/Ipratropium (Duoneb -) 1 amp NEB QIDR [facility] Last Admin: 05/06/16 06:36 Dose: 1 amp Aspirin (Ecotrin -) 81 mg PO DAILY [facility] Last Admin: 05/06/16 09:09 Dose: 81 mg Atenolol (Tenormin -) 25 mg PO BID [facility] Last Admin: 05/06/16 09:09 Dose: 25 mg Cefuroxime Axetil (Ceftin -) 500 mg PO BID [facility] Last Admin: 05/06/16 09:08 Dose: 500 mg Enalapril Maleate (Vasotec -) 20 mg PO DAILY [facility] Last Admin: 05/06/16 09:09 Dose: 20 mg Heparin Sodium (Porcine) (Heparin -) 5,000 unit SQ BID [facility] Last Admin: 05/06/16 09:09 Dose: 5,000 unit Mometasone Furoate (Asmanex 220mcg -) 1 puff IH HS [facility] Last Admin: 05/05/16 22:11 Dose: 1 puff Prednisone (Deltasone -) 40 mg PO DAILY [facility] Last Admin: 05/06/16 09:08 Dose: 40 mg Tamsulosin HCl (Flomax -) 0.4 mg PO DAILY@0830 [facility] Last Admin: 05/06/16 09:05 Dose: 0.4 mg - Objective Vital Signs: Vital Signs Temperature 96.8 F L 05/06/16 06:00 Pulse Rate 60 05/06/16 06:00 Respiratory Rate 20 05/06/16 06:00 Blood Pressure 135/72 05/06/16 06:00 O2 Sat by Pulse Oximetry (%) 94 L 05/05/16 21:00 Constitutional: Yes: Well Nourished, Calm Eyes: Yes: WNL HENT: Yes: WNL Neck: Yes: WNL Cardiovascular: Yes: Regular Rate and Rhythm, S1, S2 Respiratory: Yes: Rhonchi (few scattered rhonchi) Gastrointestinal: Yes: Normal Bowel Sounds, Soft Extremities: Yes: WNL Edema: No Labs: CBC, BMP 05/06/16 05:35 Assessment/Plan Problem List - Problems (1) COPD exacerbation Code(s): J44.1 - CHRONIC OBSTRUCTIVE PULMONARY DISEASE W (ACUTE) EXACERBATION (2) Bronchitis Code(s): J40 - BRONCHITIS, NOT SPECIFIED ACUTE OR CHRONIC (3) Substernal thyroid goiter Code(s): E04.9 - NONTOXIC GOITER, UNSPECIFIED 4 ASHD Assessment/Plan LIKELY ACUTE BRONCHITIS WITH A/E COPD FORMER SMOKER LARGE 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
--- NOTE | 2016-05-06 14:20 | PN ---
Progress Note, Physician History of Present Illness: Currently denies chest pain or dyspnea. - Current Medication List Current Medications: Active Medications Albuterol/Ipratropium (Duoneb -) 1 amp NEB QIDR [facility] Last Admin: 05/06/16 10:50 Dose: 1 amp Aspirin (Ecotrin -) 81 mg PO DAILY [facility] Last Admin: 05/06/16 09:09 Dose: 81 mg Atenolol (Tenormin -) 25 mg PO BID [facility] Last Admin: 05/06/16 09:09 Dose: 25 mg Cefuroxime Axetil (Ceftin -) 500 mg PO BID [facility] Last Admin: 05/06/16 09:08 Dose: 500 mg Enalapril Maleate (Vasotec -) 20 mg PO DAILY [facility] Last Admin: 05/06/16 09:09 Dose: 20 mg Heparin Sodium (Porcine) (Heparin -) 5,000 unit SQ BID [facility] Last Admin: 05/06/16 09:09 Dose: 5,000 unit Mometasone Furoate (Asmanex 220mcg -) 1 puff IH HS [facility] Last Admin: 05/05/16 22:11 Dose: 1 puff Prednisone (Deltasone -) 40 mg PO DAILY [facility] Last Admin: 05/06/16 09:08 Dose: 40 mg Tamsulosin HCl (Flomax -) 0.4 mg PO DAILY@0830 [facility] Last Admin: 05/06/16 09:05 Dose: 0.4 mg - Objective Vital Signs: Vital Signs Temperature 98.7 F 05/06/16 10:00 Pulse Rate 69 05/06/16 10:15 Respiratory Rate 20 05/06/16 10:00 Blood Pressure 125/80 05/06/16 10:00 O2 Sat by Pulse Oximetry (%) 94 L 05/06/16 10:15 Constitutional: Yes: Well Nourished, No Distress Eyes: Yes: Conjunctiva Clear, EOM Intact HENT: Yes: Atraumatic, Normocephalic Cardiovascular: Yes: Regular Rate and Rhythm Respiratory: Yes: CTA Bilaterally Gastrointestinal: Yes: Normal Bowel Sounds, Soft. No: Tenderness Edema: No Peripheral Pulses WNL: Yes Neurological: Yes: Alert, Oriented, Cran Nerves II-XII Intact ...Motor Strength: WNL Psychiatric: Yes: WNL Labs: CBC, BMP 05/05/16 05:35 05/06/16 05:35 Assessment/Plan 81 yo male former smoker, with CAD (occluded mid LCfx, 30% proximal and ostial RCA stenosis), hyperlipidemia, HTN, large multinodular goiter with tracheal deviation, who was admitted with cough and trouble breathing x 3 days. Currently being treated for COPD exacerbation. Trops in indeterminate range and in setting of renal dysfunction, not diagnostic of [place]. Patient also with mild rhabdomyolysis, with negative cardiac indices. Despite mildly elevated troponins of 0.06 -> 0.35 -> 0.38 -> 0.48 -> 0.35, patient does not have any symptoms currently to suggest ACS. 05/02 BNP normal 05/05 Echo: Normal LV size and systolic function. 05/05/16 Dobutamine nuclear stress: Small to moderate sized area of mild inferior ischemia, LVEF 66% RECS: Continue atenolol and enalapril Given absence of ischemic symptoms and only mild inferior ischemia with normal LVEF 66%, the patient may proceed with surgery for his goiter without further cardiac work-up or intervention. If he were to undergo coronary revascularization (which is not needed at this time), it would require dual antiplatelet therapy for a certain period of time (1 month for bare-metal stents or 6 months for newer drug eluting stents) and would not alter his ximena- operative management. Patient may proceed with surgery with continuation of his atenolol ximena-operatively. Further recs and discharge planning as per FM/ENT/pulmonary/renal/ID Will see patient prn. Call with questions. Patient will need cardiology follow- up upon discharge.
--- NOTE | 2016-05-06 14:40 | PN ---
Progress Note (short form) - Note Progress Note: Renal Follow up for ROHINI Pt seen and examined at the bedside No acute complaints Vital Signs Temperature 98.7 F 05/06/16 10:00 Pulse Rate 73 05/06/16 14:00 Respiratory Rate 20 05/06/16 14:00 Blood Pressure 146/68 05/06/16 14:00 O2 Sat by Pulse Oximetry (%) 94 L 05/06/16 10:15 Intake & Output 05/03/16 05/04/16 05/05/16 05/06/16 23:59 23:59 23:59 23:59 Intake Total 1360 690 570 0 Output Total 1100 1200 600 Balance 260 -510 -30 0 Gen: NAD, awake and alert CVS: RRR, No M/R Lungs: CTA, No rales or wheeze Abd: soft NT/ND Ext: No edema, clubbing or cyanosis : No bladder distension, Wheatley in place CBC, BMP 05/05/16 05:35 05/06/16 05:35 Current Medications Albuterol/Ipratropium (Duoneb -) 1 amp NEB QIDR [facility] Last Admin: 05/06/16 10:50 Dose: 1 amp Aspirin (Ecotrin -) 81 mg PO DAILY [facility] Last Admin: 05/06/16 09:09 Dose: 81 mg Atenolol (Tenormin -) 25 mg PO BID [facility] Last Admin: 05/06/16 09:09 Dose: 25 mg Cefuroxime Axetil (Ceftin -) 500 mg PO BID [facility] Last Admin: 05/06/16 09:08 Dose: 500 mg Enalapril Maleate (Vasotec -) 20 mg PO DAILY [facility] Last Admin: 05/06/16 09:09 Dose: 20 mg Heparin Sodium (Porcine) (Heparin -) 5,000 unit SQ BID [facility] Last Admin: 05/06/16 09:09 Dose: 5,000 unit Mometasone Furoate (Asmanex 220mcg -) 1 puff IH HS [facility] Last Admin: 05/05/16 22:11 Dose: 1 puff Prednisone (Deltasone -) 40 mg PO DAILY [facility] Last Admin: 05/06/16 09:08 Dose: 40 mg Tamsulosin HCl (Flomax -) 0.4 mg PO DAILY@0830 [facility] Last Admin: 05/06/16 09:05 Dose: 0.4 mg A/P 81 year old Gentleman with PMhx of Hypertension, Former Smoker, COPD, Hyperlipidemia, BPH? who presented with complaints of SOB that was worsening over the course of a week and found to have BUN/Cr of 22/1.4. #ROHINI vs. CKD Renal function improved and stable off IVF Will need outpatient BMP to monitor renal fucnction avoid NSAIDs, nephrotoxins #SOB secondary to COPD Continue oral steroids Pulmonary follow up #Elevated Cardiac Enzymes EKG w/o specific ischemic changes Cardiology Evaluation #Hypertension Continue Atenolol, Enalapril Goal BP < 140/90 Thank you Will follow Claudio Ramos DO
[2016-05-06 17:04] LABS: BASOPHIL 0.1 % (0-2.0); MCH 30.7 pg (25.7-33.7); MEAN CELL VOLUME 90.3 fl (80-96); MEAN PLT VOLUME 10.5 fl (7.5-11.1); NEUTROPHILS 85.3 % (42.8-82.8); PLATELET COUNT 219 K/MM3 (134-434); RDW 13.6 % (11.9-15.9); WHITE BLOOD COUNT 11.5 K/mm3 (4.0-10.0)
[2016-05-06] MEDS: MOMETASONE FUROATE 220 MCG/IH INHALER IH SCH (22:09)
[2016-05-07 06:15] VITALS: TEMP 97.6
[2016-05-07] MEDS: ALBUTEROL SO4 2.5/IPRATROPIUM 0.5 INH SOL 3 ML VIAL.NEB. NEB SCH ×2 (06:38→11:34)
[2016-05-07 07:41] LABS: CALCIUM 8.7 mg/dL (8.5-10.1); CREATININE 1.1 mg/dL (0.7-1.3)
--- NOTE | 2016-05-07 09:31 | DS ---
Physical Examination Vital Signs: Vital Signs Temperature 97.6 F 05/07/16 06:14 Pulse Rate 58 L 05/07/16 06:14 Respiratory Rate 20 05/07/16 06:14 Blood Pressure 123/67 05/07/16 06:14 O2 Sat by Pulse Oximetry (%) 92 L 05/06/16 21:00 Findings/Remarks: FEELS BETTER Cardiovascular: Yes: Regular Rate and Rhythm Respiratory: Yes: Rhonchi Gastrointestinal: Yes: Normal Bowel Sounds, Soft Labs: CBC, BMP 05/06/16 15:30 05/07/16 05:35 Discharge Summary Reason For Visit: COPD EXACERBATION PNEUMONIA Current Active Problems Acute kidney failure (Acute) COPD exacerbation (Acute) Chronic kidney disease (Acute) Congestive cardiac failure (Acute) Distended bladder (Acute) Elevated troponin (Acute) Pneumonia (Acute) Rhinitis (Acute) Substernal thyroid goiter (Acute) Hospital Course: 81yo Male patient w/ PmHx: HLD, HTN, "Prostate problems," presents to ED via EMS from home w/ family. Patient with cough and trouble breathing x 3 days not getting better. Patient son states he was refusing to go to doctors. Patient is a former smoker who quit 1 year ago. PT SEEN ON ARRIVAL TO FLOOR HE WAS WHEEZING AND IN DITRESSS--HE WAS GIVEN NEBS AND SOLU-MEDROL WITH SOME IMPROVEMENT WILL TRANSFER TO MONITORED BED PT SEEN AND DISCUSSED WITH DR MEHTA - Past Medical History Cardiovascular: Yes: HTN, Hyperlipdemia Pulmonary: Yes: COPD Renal/: Yes: BPH - Smoking History Smoking history: Former smoker Have you smoked in the past 12 months: No Aproximately how many cigarettes per day: (1) COPD exacerbation Assessment/Plan: IV STEROIDS -> TAPERING--TO PO NEBS PULM CONSULT IV ABX--TO PO Code(s): J44.1 - CHRONIC OBSTRUCTIVE PULMONARY DISEASE W (ACUTE) EXACERBATION (2) Bronchitis Assessment/Plan: ABX--PO CT OF CHEST -> GOITER WITH AIRWAY COMPROMISE Code(s): J40 - BRONCHITIS, NOT SPECIFIED ACUTE OR CHRONIC (3) Elevated troponin--Positive Stress Test Assessment/Plan: MONITOR TROP TRENDING DOWN -> POSITIVE STRESS TEST CARDIO ON CASE -> DISCUSSED FURTHER PLAN WITH SON AND THEY WOULD LIKE CATH DONE FIRST--WILL D/W CARDIO Code(s): R79.89 - OTHER SPECIFIED ABNORMAL FINDINGS OF BLOOD CHEMISTRY (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 ENDO ON CASE TSH LOW -> TFT ENT CONSULTED -> OUTPATIENT CONSULT FOR SURGICAL OPINION APPRECIATED PULM INPUT (5) Distended bladder Code(s): N32.89 - OTHER SPECIFIED DISORDERS OF BLADDER SONO -> LIVER DISEASE. RVR LOW Cr IMPROVED TO NL ON FLOMAX URO CONSULTED Condition: Improved - Instructions Referrals: Raj Looney MD [Primary Care Provider] - 1 Week Disposition: HOME - Home Medications Comprehensive Discharge Medication List: Ambulatory Orders Aspirin [Aspirin EC] 81 mg PO DAILY 05/15/14 Atenolol [Tenormin -] 25 mg PO BID 05/15/14 Enalapril Maleate [Vasotec -] 20 mg PO DAILY 05/15/14 Fenofibrate 50 mg PO DAILY 05/15/14 Fluticasone Propionate [Flovent Diskus] 50 mcg IH ASDIR 05/15/14 Guaifenesin/Codeine Phos [Guaifenesin-Codeine Syrup] 5 ml PO Q6H PRN #100 ml 04/30 Simvastatin [Zocor -] 40 mg PO HS 05/15/14 Albuterol 2.5/Ipratropium 0.5 [Duoneb -] 1 amp NEB QIDR #120 amp 05/07/16 Cefuroxime Axetil [Ceftin -] 500 mg PO BID #10 tablet 05/07/16 Prednisone [Deltasone -] 10 mg PO ASDIR #50 tab 05/07/16 Tamsulosin HCl [Flomax -] 0.4 mg PO DAILY@0830 #30 cap.er.24h 05/07/16
[2016-05-07] MEDS: predniSONE 20 MG TABLET (UD) PO SCH (09:51)
[2016-05-07] MEDS: CEFUROXIME AXETIL 500 MG TABLET PO SCH (09:51)
[2016-05-07] MEDS: TAMSULOSIN HCL 0.4 MG CAP.ER.24H (FP) PO SCH (09:51)
[2016-05-07] MEDS: HEPARIN NA (PORCINE) 5,000 UNITS/ML 1ML VIAL SQ SCH (09:52)
[2016-05-07] MEDS: ATENOLOL 25 MG TABLET (FP) PO SCH (09:52)
[2016-05-07] MEDS: ASPIRIN COATED 81 MG TABLET.EC PO SCH (09:52)
[2016-05-07] MEDS: ENALAPRIL MALEATE 10 MG TABLET (FP) PO SCH (09:52)
--- NOTE | 2016-05-07 10:33 | PN ---
Progress Note, Physician History of Present Illness: PULMPNARY ALERT,NAD,OOB-CHAIR,-SOB,-COUGH - Current Medication List Current Medications: Active Medications Albuterol/Ipratropium (Duoneb -) 1 amp NEB QIDR [facility] Last Admin: 05/07/16 06:38 Dose: 1 amp Aspirin (Ecotrin -) 81 mg PO DAILY [facility] Last Admin: 05/07/16 09:52 Dose: 81 mg Atenolol (Tenormin -) 25 mg PO BID [facility] Last Admin: 05/07/16 09:52 Dose: 25 mg Cefuroxime Axetil (Ceftin -) 500 mg PO BID [facility] Last Admin: 05/07/16 09:51 Dose: 500 mg Enalapril Maleate (Vasotec -) 20 mg PO DAILY [facility] Last Admin: 05/07/16 09:52 Dose: 20 mg Heparin Sodium (Porcine) (Heparin -) 5,000 unit SQ BID [facility] Last Admin: 05/07/16 09:52 Dose: 5,000 unit Mometasone Furoate (Asmanex 220mcg -) 1 puff IH HS [facility] Last Admin: 05/06/16 22:09 Dose: 1 puff Prednisone (Deltasone -) 40 mg PO DAILY [facility] Last Admin: 05/07/16 09:51 Dose: 40 mg Tamsulosin HCl (Flomax -) 0.4 mg PO DAILY@0830 [facility] Last Admin: 05/07/16 09:51 Dose: 0.4 mg - Objective Vital Signs: Vital Signs Temperature 97.6 F 05/07/16 06:14 Pulse Rate 58 L 05/07/16 06:14 Respiratory Rate 20 05/07/16 06:14 Blood Pressure 123/67 05/07/16 06:14 O2 Sat by Pulse Oximetry (%) 92 L 05/06/16 21:00 Constitutional: Yes: Well Nourished, Calm Eyes: Yes: WNL HENT: Yes: WNL Neck: Yes: WNL Cardiovascular: Yes: Regular Rate and Rhythm, S1, S2 Respiratory: Yes: CTA Bilaterally Gastrointestinal: Yes: Normal Bowel Sounds, Soft Extremities: Yes: WNL Edema: No Labs: CBC, BMP 05/06/16 15:30 05/07/16 05:35 Assessment/Plan Problem List - Problems (1) COPD exacerbation Code(s): J44.1 - CHRONIC OBSTRUCTIVE PULMONARY DISEASE W (ACUTE) EXACERBATION (2) Bronchitis Code(s): J40 - BRONCHITIS, NOT SPECIFIED ACUTE OR CHRONIC (3) Substernal thyroid goiter Code(s): E04.9 - NONTOXIC GOITER, UNSPECIFIED 4 ASHD Assessment/Plan LIKELY ACUTE BRONCHITIS WITH A/E COPD FORMER SMOKER LARGE 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
--- NOTE | 2016-05-07 13:13 | CONSULT ---
Consult Consult Specialty:: Thoracic Referred by:: Suman - History of Present Illness Chief Complaint: substernal goiter History of Present Illness: This is an 81 year old active man who developed acute shortness of breath when he developed a cough last week. He had a CHest CT which showed a large right substernal mass most likely a goiter. He also has a left side neck goiter as well. The patient only reports shortness of breath when he develops a cold. He denies any dyspnea when laying flat. - History Source History Provided By: Family Member, Medical Record Limitations to Obtaining History: Language Barrier - Past Medical History Cardio/Vascular: Yes: HTN, Hyperlipdemia Pulmonary: Yes: Bronchitis (2015), COPD Gastrointestinal: No: Ascites Hepatobiliary: No: Cirrhosis Renal/: Yes: BPH Infectious Disease: No: AIDS Psych: No: Addictions Rheumatology: No: Fibromyalgia ENT: No: Allergic Rhinitis - Past Surgical History Past Surgical History: Yes: Hernia Repair - Alcohol/Substance Use Hx Alcohol Use: Yes History of Substance Use: reports: None - Smoking History Smoking history: Former smoker (reduced 3 ya -. still smoked until 3 ya) Have you smoked in the past 12 months: No Aproximately how many cigarettes per day: 4 - Social History Usual Living Arrangement: With Spouse Home Medications - Allergies Allergies/Adverse Reactions: Allergies Allergy/AdvReac Type Severity Reaction Status Date / Time No Known Allergies Allergy Verified 05/02/16 00:25 - Home Medications Home Medications: Ambulatory Orders Aspirin [Aspirin EC] 81 mg PO DAILY 05/15/14 Atenolol [Tenormin -] 25 mg PO BID 05/15/14 Enalapril Maleate [Vasotec -] 20 mg PO DAILY 05/15/14 Fenofibrate 50 mg PO DAILY 05/15/14 Fluticasone Propionate [Flovent Diskus] 50 mcg IH ASDIR 05/15/14 Guaifenesin/Codeine Phos [Guaifenesin-Codeine Syrup] 5 ml PO Q6H PRN #100 ml 04/30 Simvastatin [Zocor -] 40 mg PO HS 05/15/14 Albuterol 2.5/Ipratropium 0.5 [Duoneb -] 1 amp NEB QIDR #120 amp 05/07/16 Cefuroxime Axetil [Ceftin -] 500 mg PO BID #10 tablet 05/07/16 Prednisone [Deltasone -] 10 mg PO ASDIR #50 tab 05/07/16 Tamsulosin HCl [Flomax -] 0.4 mg PO DAILY@0830 #30 cap.er.24h 05/07/16 Review of Systems - Review of Systems Respiratory: reports: SOB Physical Exam Vital Signs: Vital Signs Temperature 97.6 F 05/07/16 06:14 Pulse Rate 58 L 05/07/16 06:14 Respiratory Rate 20 05/07/16 10:00 Blood Pressure 123/67 05/07/16 06:14 O2 Sat by Pulse Oximetry (%) 92 L 05/06/16 21:00 Constitutional: Yes: Well Nourished Eyes: Yes: WNL HENT: Yes: WNL Neck: Yes: Thyromegaly, Other (trachea deviated to the right) Respiratory: Yes: WNL Gastrointestinal: Yes: WNL Labs: CBC, BMP 05/06/16 15:30 05/07/16 05:35 Imaging - Results Cat Scan: Report Reviewed, Image Reviewed Assessment/Plan This patient has a large right substernal mass that may be a thyroid goiter. It goes to about the rene and narrows the trachea from about the thoracic inlet for a distance of 3 cm. I have discussed the case with the patient's son and the covering MD. We discussed that we would be available to do a sternotomy if necessary to remove the mass. As per PMD, he will need pre-operative cardiac cath and possible stent placement. I also discussed with the son that he may need a tracheal stent post-resection if the trachea stenosis is not relieved with the resection. Alternatives include observation or tracheal stent alone. We will follow the case and be available when a resection is scheduled.
[2016-05-07 13:56] VITALS: BP 113/61; PULSE 71
--- NOTE | 2016-05-07 17:10 | PN ---
Progress Note (short form) - Note Progress Note: Renal Follow up for ROHINI Pt seen and examined at the bedside No acute complaints awaiting discharge Vital Signs Temperature 97.6 F 05/07/16 06:14 Pulse Rate 71 05/07/16 13:55 Respiratory Rate 20 05/07/16 13:55 Blood Pressure 113/61 05/07/16 13:55 O2 Sat by Pulse Oximetry (%) 92 L 05/06/16 21:00 Intake & Output 05/04/16 05/05/16 05/06/16 05/07/16 23:59 23:59 23:59 23:59 Intake Total 690 570 210 0 Output Total 1200 600 Balance -510 -30 210 0 Gen: NAD, awake and alert CVS: RRR, No M/R Lungs: CTA, No rales or wheeze Abd: soft NT/ND Ext: No edema, clubbing or cyanosis : No bladder distension, Wheat[place] in place CBC, BMP 05/06/16 15:30 05/07/16 05:35 A/P 81 year old Gentleman with PMhx of Hypertension, Former Smoker, COPD, Hyperlipidemia, BPH? who presented with complaints of SOB that was worsening over the course of a week and found to have BUN/Cr of 22/1.4. #ROHINI vs. CKD Renal function improved and stable off IVF encourged good oral hydration upon discharge repeat labs with PMD in 1-2 weeks #SOB secondary to COPD Continue oral steroids Pulmonary follow up #Elevated Cardiac Enzymes EKG w/o specific ischemic changes Cardiology Evaluation #Hypertension Continue Atenolol, Enalapril Goal BP < 140/90 Claudio Ramos DO
== END 2016-05-07 15:39 | disposition home or self-care (01) | DRG 191 ==
LOC: JER 00:15 → JERBED 06:07 → UNDOADMIN 06:11 → J8W 08:28 → J4W 09:51
PROVIDERS: ADMIT Family Medicine; ATTEND Family Medicine
DX: J44.0 Chronic obstructive pulmonary disease with (acute) lower respiratory infection (principal); N17.9 Acute kidney failure, unspecified; E78.5 Hyperlipidemia, unspecified; J44.1 Chronic obstructive pulmonary disease with (acute) exacerbation; Z87.891 Personal history of nicotine dependence; N40.0 Benign prostatic hyperplasia without lower urinary tract symptoms; E04.9 Nontoxic goiter, unspecified; R79.89 Other specified abnormal findings of blood chemistry; J20.9 Acute bronchitis, unspecified; I25.10 Atherosclerotic heart disease of native coronary artery without angina pectoris; R35.1 Nocturia; N32.89 Other specified disorders of bladder; I12.9 Hypertensive chronic kidney disease with stage 1 through stage 4 chronic kidney disease, or unspecified chronic kidney disease; N18.9 Chronic kidney disease, unspecified; J39.8 Other specified diseases of upper respiratory tract; J31.0 Chronic rhinitis
CPT/HCPCS: 36415; 36600; 71020-TC; 71260-TC; 76536-TC; 76775-TC; 76856-TC; 78452-TC; 80048; 80053; 81003; 81015; 82550; 82553; 82570; 82803; 83735; 83880; 84100; 84156; 84300; 84439; 84443; 84484; 84540; 85025; 85027; 87040; 87086; 87254; 87804; 93005; 93010; 93017; 93306-TC; 94640; 94761; 99283-25; A9502; J1644